=== PATIENT | female | born 1970 | race Caucasian/White ===

== ENCOUNTER → 2018-04-24 09:57 | Outpatient (CLI) | payer OTHER, SELFPAY ==
[2018-04-24 11:39] LABS: Add Manual Diff / Slide Review NO; Basophils Percent Auto 0.6 % (0-2); Eosinophils Percent Auto 0.8 % (2-4); Hematocrit 44.5 % (36-46); Hemoglobin 15.5 g/dL (12.0-16.0); Lymphocytes Percent Auto 34.6 % (25-40); Mean Corpuscular HGB Conc 34.8 % (30-36); Mean Corpuscular Hemoglobin 31.9 PG (26-34); Mean Corpuscular Volume 91.6 fL (80-100); Monocytes Percent Auto 6.3 % (3-14); Neutrophils Absolute Auto 3500 /uL (3000-5900); Neutrophils Percent Auto 57.7 % (50-75); Platelet Count 196 X10^3/uL (150-400); Red Blood Cell Count 4.85 X10^6/uL (4.0-5.2); Red Cell Distribution Width 13.4 % (11.6-14.8)
[2018-04-24 11:43] LABS: Prothrombin Time 10.6 SECONDS (10.1-12.7)
[2018-04-24 11:46] LABS: PTT Partial Thromboplastin Tim 33 SECONDS (26.4-36.2)
== END ==
PROVIDERS: PCP Internal Medicine; Visit Provider Orthopaedic Surgery Orthopaedic Surgery of the Spine
DX: Z01.818 Encounter for other preprocedural examination (principal)
CPT/HCPCS: 36415; 85025; 85610; 85730; 93005; 93010

== ENCOUNTER 2018-05-09 13:18 | Day surgery (SDC) | payer OTHER, SELFPAY ==
[2018-05-09] VITALS (10 sets, daily range): BP systolic 109–129; BP diastolic 72–82; PULSE 70–92; RESP 10–20; TEMP 35.9–36.3; O2SAT 94–100; BMI 19.8
--- NOTE | 2018-05-09 | DI.RAD.S_ITS ---
PROCEDURE: XR LUMBAR SPINE 2-3V INDICATIONS: L4-5 MICRO DISCECTOMY TECHNIQUE: 2 views of the lumbar spine were acquired. COMPARISON: None. FINDINGS: Bones: There is normal bony alignment. No vertebral body compression fractures. No suspicious bony lesions. Intraoperative localizer posterior and left of the L4-L5 disc space. Soft tissues: Overlying bowel gas pattern is normal. No suspicious soft tissue calcifications. IMPRESSION: Intraoperative localizer level is L4-L5 disc. Dictated by: Ginger Keller MD, PhD on 05/09/2018 at 18:40 Approved by: Ginger Keller MD, PhD on 05/09/2018 at 18:41
[2018-05-09] MEDS: LACTATED RINGERS 1,000 ML 42 ML IV ×2 (14:29→17:13)
--- NOTE | 2018-05-09 15:35 | PM.PREOP ---
Pre-operative Note Interval Note Pre-op Check: Yes History & Physical Reviewed by Physician, Yes Exam Performed and Yes History & Physical exam performed today by Physician Changes: No
[2018-05-09] MEDS: CEFAZOLIN 1 GM VIAL 2 GM IV (15:53)
--- NOTE | 2018-05-09 16:18 | SUR.OPER ---
Prone on spine table, head in foam head support, padded chest and pelvic supports, gel pad at knees, lower legs supported by pillows; nipples, genitalia and toes free of pressure, arms secured on foam padded arm boards at <90 degrees abduction. Tape over blanket at thigh secured to table.
[2018-05-09] MEDS: BUPIVACAINE 0.5% W/ EPI (PF) VIAL 30 ML INJ (16:25)
[2018-05-09] MEDS: methylPREDNISolone acet DEPO 40 MG/ML VIAL INJ (16:29)
--- NOTE | 2018-05-09 17:03 | PM.OP.1 ---
Operative Date/Time/Diagnoses Date of procedure: 05/09/18 Time of procedure: 16:03 Pre-op diagnosis: 1. L4-5 disc herniation 2. Lumbar radiculopathy Post-op diagnosis: same Procedure & Clinicians Procedure: 1. L4-5 left microdiscectomy 2. Utilization of microsurgical technique and operating microscope Same procedure as scheduled: Yes Indications: Patient has been having chronic back pain and worsening lumbar radiculopathy. Patient failed multiple conservative management with worsening pain weakness and numbness in her lower extremity. Patient has been having difficulty performing activity of daily living. After discussing risks benefits of treatment options, patient elected proceed with surgery. Surgeon: Yoni Ruth Sales Engineer Engineered Products: Jenni Pelayo Click Yes if Unassisted: No Anesthesia Type: General Operative Notes Closure Type: primary Specimen(s): none sent Estimated Blood Loss (mL): 20 Blood products transfused: none Procedure in detail: Patient was seen in the preoperative area. Risks and benefits of the surgery was discussed with the patient. Informed consent was obtained from the patient and placed in the chart. Surgical site was marked. Patient was taken to the operative room. General anesthesia was administered. Prophylactic antibiotic was given to the patient less than 30 min before the incision was made. Patient was placed into a prone position on the Matt table. Patient's back was then prepped and draped in the sterile fashion. Time-out was performed at this time. Using AP and lateral C-arm imaging the interval between L4-5 was identified and marked on patient's back. A 1 inch incision 1 in from midline was made on the left side. The fascia was incised in line with skin incision. Globus MARS retractors was placed inside the incision and docked onto the L4 lamina. Using microsurgical technique and operating microscope, a L4 laminotomy was performed using a Kerrison rongeur. Liagamentum flavum was resected at the site of the laminotomy. The disc space at L4-5 was identified. Microdiscectomy was performed by incising the annulus with #11 blade. Microcurettes and pituitary was used to removed herniated disc fragments of disc from the epidural space. After the microdiskectomy was completed, the area medial lateral superior and inferior to the area of the microdiskectomy was inspected and explored using a micro curette. No other impinging structure was identified. The wound was then irrigated with sterile normal saline. 40 mg Depo-Medrol was placed into the epidural space. The deep fascia was closed with 1-0 Vicryl. The subcutaneous tissue was closed with 2-0 Vicryl. The skin was closed with 4-0 Monocryl. Patient tolerated the procedure well. There were no complications. Patient was transferred recovery room in stable condition. Complications: none Condition: stable Disposition: same day surgery Plan for aftercare: Discharge to home
[2018-05-09] MEDS: hydrOXYzine pamoate 25 MG CAPSULE PO (17:54)
== END 2018-05-09 18:37 | disposition home or self-care (01) ==
PROVIDERS: Family Provider Family Medicine; PCP Internal Medicine; Visit Provider Orthopaedic Surgery Orthopaedic Surgery of the Spine
PROC: (CPT 63030; principal; 2018-05-09 15:15)
DX: M51.16 Intervertebral disc disorders with radiculopathy, lumbar region (principal); M54.5 Low back pain; G89.29 Other chronic pain; G35 Multiple sclerosis; F17.210 Nicotine dependence, cigarettes, uncomplicated
CPT/HCPCS: 63030; 72100; 76000; J0330; J0690; J1030; J1100; J1170; J1885; J2250; J2405; J2704; J3010

== ENCOUNTER 2020-01-11 20:38 | Emergency (ER) | payer OTHER, SELFPAY ==
[2020-01-11 21:05] VITALS: BP 149/93; PULSE 91; RESP 20; TEMP 37.2; O2SAT 98; BMI 19.5
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
== END 2020-01-12 01:00 | disposition home or self-care (01) ==
PROVIDERS: Emergency Provider Emergency Medicine; PCP Internal Medicine
DX: S06.0X0A Concussion without loss of consciousness, initial encounter (principal); S13.4XXA Sprain of ligaments of cervical spine, initial encounter; V43.52XA Car driver injured in collision with other type car in traffic accident, initial encounter; Y92.410 Unspecified street and highway as the place of occurrence of the external cause
CPT/HCPCS: 99281; 99283

== ENCOUNTER 2020-05-16 18:43 | Emergency (ER) | payer OTHER, SELFPAY ==
[2020-05-16 19:04] VITALS: BP 138/94; PULSE 96; RESP 16; TEMP 36.7; O2SAT 97; BMI 19.1
--- NOTE | 2020-05-16 19:26 | ED_ITS ---
HPI - General Adult General Chief complaint: Diabetic Problem Stated complaint: Blood Sugar 559, Not Feeling Well Time Seen by Provider: 05/16/20 18:54 Source: patient Mode of arrival: Ambulatory Limitations: no limitations History of Present Illness HPI narrative: 49-year-old female with history of diabetes not on insulin here for evaluation of hyperglycemia. Patient states that she has been on oral medications for some time. She has been in communication with her primary provider. She states that she recently had test performed which concluded that she was ?type 1 diabetic ?she has been in discussion with her primary provider about being on insulin. Apparently there has been a prescription for this into the pharmacy however due to some issues with insurance and the prescription patient has yet to start on any insulin. She states she has felt very fatigued recently. Has been urinating quite a bit. Overall has not felt very well. Took her blood sugar earlier today and it was greater than 500. She drank a protein shake after this reading. She has been taking her oral medications. Related Data Home Medications Medication Instructions Recorded Confirmed cholecalciferol (vitamin D3) 5,000 unit PO DAILY 05/06/18 05/09/18 cyanocobalamin (vitamin B-12) 1,000 mcg PO DAILY 05/06/18 05/09/18 ferrous sulfate 325 mg PO BID 05/06/18 05/09/18 ibuprofen 800 mg PO Q6H PRN 05/06/18 05/09/18 interferon beta-1a [Avonex] 0.5 ml IM WEEKLY 05/06/18 05/09/18 oxycodone-acetaminophen 1 tab PO Q4-6H PRN 05/06/18 05/09/18 venlafaxine 150 mg PO DAILY 05/06/18 05/09/18 methocarbamol 750 mg PO BEDTIME 05/08/18 05/09/18 Previous Rx's Medication Instructions Recorded hydroxyzine pamoate [Vistaril] 25 mg PO Q6-8H PRN #20 cap 05/09/18 oxycodone 5 mg PO Q4-6H PRN #30 cap 05/09/18 Allergies Allergy/AdvReac Type Severity Reaction Status Date / Time latex Allergy Severe Rash Verified 05/09/18 14:50 Review of Systems Constitutional Constitutional: Reports fatigue, Denies headache(s), Reports malaise and Reports weight loss Eyes Eyes: Reports blurry vision ENT Ears, Nose, Mouth, and Throat: Denies headache(s) Cardiovascular Cardiovascular: Denies chest pain and Denies dyspnea Respiratory Respiratory: Denies dyspnea Gastrointestinal Gastrointestinal: Denies abdominal pain, Denies nausea and Denies vomiting Genitourinary Genitourinary: Denies dysuria Genitourinary: Denies dysuria Musculoskeletal Musculoskeletal: Denies arthralgias and Denies myalgias Integumentary/Breasts Skin/Breast: Denies rash Neurologic Neurologic: Denies behavioral changes and Denies headache(s) Psychiatric Psychiatric: Denies behavioral changes Endocrine Endocrine: Reports fatigue Hematologic/Lymphatic Hematologic/Lymphatic: Denies easy bleeding and Denies easy bruising Allergic/Immunologic Allergic/Immunologic: Denies urticaria Patient History Medical History Diabetes, gestational (Acute) Easy bruising (Acute) Hot flashes (Acute) Incomplete RBBB (Acute) Low back pain with left-sided sciatica (Acute) Lumbar disc herniation with radiculopathy (Acute) Multiple sclerosis (Acute) Perimenopausal (Acute) Primary osteoarthritis of left knee (Acute) Primary osteoarthritis of right knee (Acute) Restless leg (Acute) Septal myocardial infarction (Acute) Social History household members: family Smoking Status: Current every day smoker Smoking Status: Current every day smoker alcohol intake frequency: 0-2 drinks per day Substance Use Type: marijuana Exam Initial Vital Signs Initial Vital Signs: Vital Signs Temperature 98.1 F 05/16/20 19:04 Pulse Rate 96 H 05/16/20 19:04 Respiratory Rate 16 05/16/20 19:04 Blood Pressure 138/94 H 05/16/20 19:04 Pulse Oximetry 97 05/16/20 19:04 Const General: cooperative and comfortable Limitations: mental status not altered HENMT Head: normal to inspection and normocephalic Resp Effort & Inspection: normal respiratory effort Cardio Rate: regular rate GI Inspection: non-distended Palpation: soft Skin Lesions: no lesions Rashes: no rashes Neuro General: patient alert, patient awake and patient oriented x3 Cognition: normal cognition Speech: speech normal Gait: normal gait Extrem General: normal to inspection Psych Appearance: grossly normal and well kempt Scores GCS [place] coma scale eye opening: Spontaneous [place] coma scale verbal response: Orientated [place] coma scale motor response: Obey commands [place] coma scale total score: 15 Course Orders Ordered: ED Orders 05/16/20 18:56 EKG-12 Lead Stat 05/16/20 19:21 Complete Blood Count AUTO DIFF Stat Comprehensive Metabolic Panel Stat Ethanol (ETOH) Stat Ketones (Beta-Hydroxybutyrate) Stat Lactate (Lactic Acid) Stat Lipase Stat Magnesium Stat Phosphorous Stat Troponin & CK Cardiac Panel Stat 05/16/20 19:40 Venous Blood Gas Stat 05/16/20 19:46 UA Complete [Urinalysis and Microscopic] Stat Discontinued Medications Sodium Chloride (Normal Saline 0.9%) 1,000 mls @ 1,000 mls/hr IV BOLUS ONE Stop: 05/16/20 19:54 Last Infusion: 05/16/20 20:41 Dose: 0 mls/hr Documented by: Admin: 05/16/20 19:28 Dose: 1,000 mls/hr Documented by: VINCENT Vital Signs Vital signs: Vital Signs - 8 hr 05/16/20 19:04 05/16/20 19:44 05/16/20 20:00 Temperature 98.1 F Pulse Rate 96 H 73 76 Respiratory Rate 16 21 20 Blood Pressure 138/94 H Pulse Oximetry 97 96 95 05/16/20 20:30 05/16/20 20:59 Temperature Pulse Rate 74 79 Respiratory Rate 18 14 Blood Pressure 126/81 Pulse Oximetry 95 98 Medical Decision Making Lab Data Lab results reviewed: Yes I reviewed the patient's lab results. Result diagrams: 05/16/20 19:21 05/16/20 19:21 Labs: Lab Results 05/16/20 05/16/20 05/16/20 Range/Units 19:21 19:21 19:21 WBC 4.9 (4.5-11.0) X10^3/uL RBC 4.55 (4.0-5.2) X10^6/uL Hgb 14.1 (12.0-16.0) g/dL Hct 41.4 (36-46) % MCV 90.9 (80-100) fL MCH 31.1 (26-34) PG MCHC 34.2 (30-36) % RDW 13.4 (11.6-14.8) % Plt Count 147 L (150-400) X10^3/uL Neut % (Auto) 51.6 (50-75) % Lymph % (Auto) 40.2 H (25-40) % [place] % (Auto) 5.8 (3-14) % Eos % (Auto) 1.4 L (2-4) % Baso % (Auto) 1.0 (0-2) % Neut # (Auto) 2500 (0232-7260) /uL Lymph # (Auto) 2000 (2930-4381) /uL [place] # (Auto) 300 (0-900) /uL Eos # (Auto) 100 (0-450) /uL Baso # (Auto) 0 (0-100) /uL VBG pH (7.33-7.43) VBG pCO2 (45-50) mmHg VBG pO2 (35-45) mmHg VBG HCO3 (23-28) mmol/L VBG Total CO2 (24-29) mmol/L VBG O2 Saturation (70-75) % VBG Base Excess (0-4) mmol/L Sodium 132 L (137-145) mmol/L Potassium 4.4 (3.4-5.1) mmol/L Chloride 95 L (98-107) mmol/L Carbon Dioxide 30 (22-32) mmol/L BUN 21 H (7-17) mg/dL Creatinine 0.42 L (0.52-1.04) mg/dL Estimated GFR > 60.0 (>60) mL/min BUN/Creatinine Ratio 50.0 H (6-22) Glucose 402 H (70-100) mg/dL Lactate (0.7-2.1) mmol/L Calcium 9.4 (8.4-10.2) mg/dL Phosphorus 3.7 (2.5-4.5) mg/dL Magnesium 1.8 (1.6-2.3) mg/dL Total Bilirubin 0.4 (0.2-1.3) mg/dL AST 22 (14-36) IU/L ALT 20 (<35) IU/L Alkaline Phosphatase 115 (38-126) U/L Total Creatine Kinase 53 (30-135) U/L CK-MB (CK-2) TNP CK-MB (CK-2) Rel Index TNP Troponin I < 0.012 (0.01-0.034) ng/mL Total Protein 6.8 (6.3-8.2) g/dL Albumin 4.1 (3.5-5.0) g/dL Globulin 2.7 (1.7-4.1) g/dL Albumin/Globulin Ratio 1.5 (1.0-2.8) Lipase 81 (23-300) U/L Urine Color Urine Appearance Urine pH (4.5-8.0) Ur Specific [place] (1.000-1.035) Urine Protein (Negative) Urine Glucose (UA) (Negative) g/dL Urine Ketones (NEGATIVE) Urine Occult Blood (Negative) Urine Nitrate (Negative) Urine Bilirubin (NEGATIVE) Urine Urobilinogen (0.2) E.U./dL Ur Leukocyte Esterase (NEGATIVE) Urine RBC (0-5/HPF) Urine WBC (0-5/HPF) Ur Squamous Epith Cells (0-5/HPF) Amorphous Sediment Urine Bacteria (None) Ur Culture Indicated? Ethyl Alcohol < 10 ( - 10) mg/dL Ketones 0.11 (<0.27) mmol/L 05/16/20 05/16/20 05/16/20 Range/Units 19:21 19:40 19:46 WBC (4.5-11.0) X10^3/uL RBC (4.0-5.2) X10^6/uL Hgb (12.0-16.0) g/dL Hct (36-46) % MCV (80-100) fL MCH (26-34) PG MCHC (30-36) % RDW (11.6-14.8) % Plt Count (150-400) X10^3/uL Neut % (Auto) (50-75) % Lymph % (Auto) (25-40) % [place] % (Auto) (3-14) % Eos % (Auto) (2-4) % Baso % (Auto) (0-2) % Neut # (Auto) (1134-4668) /uL Lymph # (Auto) (7724-7387) /uL [place] # (Auto) (0-900) /uL Eos # (Auto) (0-450) /uL Baso # (Auto) (0-100) /uL VBG pH 7.45 H (7.33-7.43) VBG pCO2 44.5 L (45-50) mmHg VBG pO2 75 H (35-45) mmHg VBG HCO3 31 H (23-28) mmol/L VBG Total CO2 32 H (24-29) mmol/L VBG O2 Saturation 95 H (70-75) % VBG Base Excess 7.0 H (0-4) mmol/L Sodium (137-145) mmol/L Potassium (3.4-5.1) mmol/L Chloride (98-107) mmol/L Carbon Dioxide (22-32) mmol/L BUN (7-17) mg/dL Creatinine (0.52-1.04) mg/dL Estimated GFR (>60) mL/min BUN/Creatinine Ratio (6-22) Glucose (70-100) mg/dL Lactate 0.7 (0.7-2.1) mmol/L Calcium (8.4-10.2) mg/dL Phosphorus (2.5-4.5) mg/dL Magnesium (1.6-2.3) mg/dL Total Bilirubin (0.2-1.3) mg/dL AST (14-36) IU/L ALT (<35) IU/L Alkaline Phosphatase (38-126) U/L Total Creatine Kinase (30-135) U/L CK-MB (CK-2) CK-MB (CK-2) Rel Index Troponin I (0.01-0.034) ng/mL Total Protein (6.3-8.2) g/dL Albumin (3.5-5.0) g/dL Globulin (1.7-4.1) g/dL Albumin/Globulin Ratio (1.0-2.8) Lipase (23-300) U/L Urine Color Yellow Urine Appearance Sl cloudy Urine pH 7.0 (4.5-8.0) Ur Specific [place] 1.015 (1.000-1.035) Urine Protein Negative (Negative) Urine Glucose (UA) 2+ H (Negative) g/dL Urine Ketones Negative (NEGATIVE) Urine Occult Blood 3+ H (Negative) Urine Nitrate Negative (Negative) Urine Bilirubin Negative (NEGATIVE) Urine Urobilinogen 0.2 (0.2) E.U./dL Ur Leukocyte Esterase Negative (NEGATIVE) Urine RBC 10-30/hpf H (0-5/HPF) Urine WBC 0-1/hpf (0-5/HPF) Ur Squamous Epith Cells 0-1 /hpf (0-5/HPF) Amorphous Sediment 3+ Urine Bacteria None seen (None) Ur Culture Indicated? Cult not indicated Ethyl Alcohol ( - 10) mg/dL Ketones (<0.27) mmol/L Point of Care Testing Test Results Negative Glucose POC 314 Point of care testing: Point of Care Testing Test Results Negative Glucose POC 314 ECG Data Attestation: I personally reviewed and interpreted this ECG as follows: Prior ECG tracings: not available for review Interpretation: Sinus rhythm Normal axis Normal QRS Normal QTC No ST T wave changes MDM Narrative Medical decision making narrative: Blood sugar improved with fluids. No signs of DKA. Had a discussion with the patient regarding her blood sugar. Patient was hoping that I would start her on insulin out of the emergency department however I told her that this is something that needs to be followed up with her primary doctor in someone who can follow her up closely and make adjustments as needed. I feel we could hold on further workup for now. Patient was given return precautions and follow-up instructions. She expressed understanding and agreement. Discharge Plan Departure Patient Disposition: Home Clinical Impression: Hyperglycemia Discharge Date/Time: 05/16/20 20:59 Instructions: DI for Diabetes Type 1 -- Adult Activity Restrictions/Additional Instructions: I recommend that you continue all of your medications as directed. Contact your primary provider tomorrow for a follow-up to discuss the status of your insulin prescription. Return to the emergency department for any new or worsening symptoms like we discussed. Prescriptions: No Action venlafaxine 150 mg Capsule,Extended Release 24hr 150 mg PO DAILY RF: 0 cyanocobalamin (vitamin B-12) 1,000 mcg Tablet 1,000 mcg PO DAILY RF: 0 ferrous sulfate 325 mg (65 mg iron) Tablet 325 mg PO BID RF: 0 ibuprofen 200 mg Tablet 800 mg PO Q6H PRN (Reason: Pain) RF: 0 interferon beta-1a [Avonex] 30 mcg/0.5 mL Syringe Kit 0.5 ml IM WEEKLY RF: 0 cholecalciferol (vitamin D3) 5,000 unit Tablet 5,000 unit PO DAILY RF: 0 oxycodone-acetaminophen 5-325 mg Tablet 1 tab PO Q4-6H PRN (Reason: Pain, Moderate) RF: 0 methocarbamol 750 mg Tablet 750 mg PO BEDTIME RF: 0 oxycodone 5 mg capsule 5 mg PO Q4-6H PRN (Reason: pain) Qty: 30 RF: 0 hydroxyzine pamoate [Vistaril] 25 mg capsule 25 mg PO Q6-8H PRN (Reason: spasms) Qty: 20 RF: 0 Referrals: Yoel Leon MD [Primary Care Provider] -
[2020-05-16] MEDS: SODIUM CHLORIDE 0.9% 1,000 ML 1000 ML IV (19:28)
[2020-05-16 19:32] LABS: Add Manual Diff / Slide Review NO; Basophils Absolute Auto 0 /uL (0-100); Eosinophils Absolute Auto 100 /uL (0-450); Eosinophils Percent Auto 1.4 % (2-4); Hematocrit 41.4 % (36-46); Hemoglobin 14.1 g/dL (12.0-16.0); Lymphocytes Absolute Auto 2000 /uL (1100-4500); Lymphocytes Percent Auto 40.2 % (25-40); Mean Corpuscular HGB Conc 34.2 % (30-36); Mean Corpuscular Hemoglobin 31.1 PG (26-34); Mean Corpuscular Volume 90.9 fL (80-100); Monocytes Absolute Auto 300 /uL (0-900); Monocytes Percent Auto 5.8 % (3-14); Neutrophils Absolute Auto 2500 /uL (1500-7000); Neutrophils Percent Auto 51.6 % (50-75); Platelet Count 147 X10^3/uL (150-400); Red Blood Cell Count 4.55 X10^6/uL (4.0-5.2); Red Cell Distribution Width 13.4 % (11.6-14.8); White Blood Cell Count 4.9 X10^3/uL (4.5-11.0)
[2020-05-16 19:44] VITALS: PULSE 73; RESP 21; O2SAT 96
[2020-05-16 19:48] LABS: Creatine Kinase 53 U/L (30-135); Lactate (Lactic Acid) 0.7 mmol/L (0.7-2.1); Lipase 81 U/L (23-300); Magnesium 1.8 mg/dL (1.6-2.3); Phosphorous 3.7 mg/dL (2.5-4.5)
[2020-05-16 19:50] LABS: Alanine Aminotransferase 20 IU/L (<35); Albumin 4.1 g/dL (3.5-5.0); Albumin Globulin Ratio 1.5 (1.0-2.8); Alkaline Phosphatase 115 U/L (38-126); Aspartate Aminotransferase 22 IU/L (14-36); Bilirubin Total 0.4 mg/dL (0.2-1.3); Blood Urea Nitrogen 21 mg/dL (7-17); Calcium 9.4 mg/dL (8.4-10.2); Carbon Dioxide 30 mmol/L (22-32); Chloride 95 mmol/L (98-107); Estimated Glomerular Filt Rate > 60.0 mL/min (>60); Globulin 2.7 g/dL (1.7-4.1); Glucose 402 mg/dL (70-100); HEMOLYSIS 17 (0-50); Potassium 4.4 mmol/L (3.4-5.1); Sodium 132 mmol/L (137-145); Total Protein 6.8 g/dL (6.3-8.2)
[2020-05-16 19:52] LABS: Ketones (Beta-Hydroxybutyrate) 0.11 mmol/L (<0.27)
[2020-05-16 19:54] LABS: Bacteria Urine None Seen
[2020-05-16 19:56] LABS: PCO2 VBG 44.5 mmHg (45-50); pH VBG 7.45 (7.33-7.43)
[2020-05-16 19:57] LABS: HCO3 VBG 31 mmol/L (23-28); PO2 VBG 75 mmHg (35-45); Total CO2 VBG 32 mmol/L (24-29)
[2020-05-16 19:58] LABS: Appearance Urine UA SL CLOUDY; Bilirubin Urine UA NEGATIVE (NEGATIVE); Color Urine UA YELLOW; Glucose Urine UA 2+ g/dL (Negative); Ketones Urine UA NEGATIVE (NEGATIVE); Leukocyte Esterase Urine UA NEGATIVE (NEGATIVE); Nitrite Urine UA NEGATIVE (Negative); Occult Blood Urine UA 3+ (Negative); Protein Urine UA NEGATIVE (Negative); Specific Gravity Urine UA 1.015 (1.000-1.035); Urobilinogen Urine UA 0.2 E.U./dL (0.2)
[2020-05-16 19:58] LABS: Oxygen Saturation VBG 95 % (70-75)
[2020-05-16 20:00] VITALS: PULSE 76; RESP 20; O2SAT 95
[2020-05-16 20:01] LABS: Troponin I < 0.012 ng/mL (0.01-0.034)
[2020-05-16 20:04] LABS: Ethanol (ETOH) < 10 mg/dL
[2020-05-16 20:25] LABS: Amorphous Sediment Urine 3+; Culture Indicated Urine Cult Not Indicated; RBC Urine 10-30/HPF (0-5/HPF); Squamous Epithelial Cell Urine 0-1 /HPF (0-5/HPF); WBC Urine 0-1/HPF (0-5/HPF)
[2020-05-16 20:30] VITALS: PULSE 74; RESP 18; O2SAT 95
[2020-05-16 20:59] VITALS: BP 126/81; PULSE 79; RESP 14; O2SAT 98
== END 2020-05-16 20:59 | disposition home or self-care (01) ==
PROVIDERS: Emergency Provider Emergency Medicine; PCP Internal Medicine
DX: E11.65 Type 2 diabetes mellitus with hyperglycemia (principal)
CPT/HCPCS: 36415; 80053; 80320; 81001; 81025; 82009; 82550; 82805; 82962; 83605; 83690; 83735; 84100; 84484; 85025; 93005; 96360; 99284

== ENCOUNTER 2020-08-03 17:22 | Emergency (ER) | payer OTHER, SELFPAY ==
[2020-08-03] VITALS (9 sets, daily range): BP systolic 118–142; BP diastolic 81–96; PULSE 81–125; RESP 15–31; TEMP 36.8; O2SAT 94–98; BMI 18.8
--- NOTE | 2020-08-03 18:31 | ED.EXTPRO ---
HPI - Extremity Problem General Chief complaint: Extremity Problem,Nontraumatic Stated complaint: R had swollen and numb after taking a medication Time Seen by Provider: 08/03/20 18:03 Source: patient Mode of arrival: Ambulatory Limitations: no limitations History of Present Illness HPI Narrative: Patient is a 49-year-old female here for evaluation of pain and redness and tingling to her right upper extremity. Patient states that just over 10 days ago she was started on antibiotics for a ?cyst? on her left cheek. After being on this medication for more than 1 week she started to develop a rash. She went to a walk-in clinic who thought that she was potentially have an allergic reaction. She was given a dose of Decadron and was instructed to stop taking the antibiotics. She has stopped taking them as directed however she now has pain and tingling to her right upper extremity. She is concerned that potentially is having reaction to the steroids. Denies any chest pain or shortness of breath. No problems swallowing. She does have a history of an insulin-dependent diabetes and also myasthenia gravis. Related Data Home Medications Medication Instructions Recorded Confirmed cholecalciferol (vitamin D3) 5,000 unit PO DAILY 05/06/18 05/09/18 cyanocobalamin (vitamin B-12) 1,000 mcg PO DAILY 05/06/18 05/09/18 ferrous sulfate 325 mg PO BID 05/06/18 05/09/18 ibuprofen 800 mg PO Q6H PRN 05/06/18 05/09/18 interferon beta-1a [Avonex] 0.5 ml IM WEEKLY 05/06/18 05/09/18 oxycodone-acetaminophen 1 tab PO Q4-6H PRN 05/06/18 05/09/18 venlafaxine 150 mg PO DAILY 05/06/18 05/09/18 methocarbamol 750 mg PO BEDTIME 05/08/18 05/09/18 Previous Rx's Medication Instructions Recorded hydroxyzine pamoate [Vistaril] 25 mg PO Q6-8H PRN #20 cap 05/09/18 oxycodone 5 mg PO Q4-6H PRN #30 cap 05/09/18 oxycodone-acetaminophen [Percocet] 1 tab PO Q4-6H PRN #7 tab 08/03/20 prednisone 20 mg PO DAILY 6 Days #6 tab 08/03/20 Allergies Allergy/AdvReac Type Severity Reaction Status Date / Time latex Allergy Severe Rash Verified 08/03/20 17:30 amoxicillin Allergy Verified 08/03/20 17:30 Review of Systems Constitutional Constitutional: Denies fever(s) ENT Ears, Nose, Mouth, and Throat: Denies sore throat Cardiovascular Cardiovascular: Denies chest pain and Denies dyspnea Respiratory Respiratory: Denies dyspnea Musculoskeletal Musculoskeletal: Reports arthralgias (Right wrist now a right shoulder) and Reports myalgias Integumentary/Breasts Skin/Breast: Reports rash Neurologic Neurologic: Denies behavioral changes Psychiatric Psychiatric: Denies behavioral changes Hematologic/Lymphatic Hematologic/Lymphatic: Denies easy bleeding and Denies easy bruising Allergic/Immunologic Allergic/Immunologic: Denies urticaria Patient History Medical History Diabetes, gestational Easy bruising Hot flashes Incomplete RBBB Low back pain with left-sided sciatica Lumbar disc herniation with radiculopathy Multiple sclerosis Perimenopausal Primary osteoarthritis of left knee Primary osteoarthritis of right knee Restless leg Septal myocardial infarction Social History household members: family Smoking Status: Current every day smoker Smoking Status: Current every day smoker alcohol intake frequency: holidays/special occasions only Substance Use Type: marijuana Exam Initial Vital Signs Initial Vital Signs: Vital Signs Temperature 98.2 F 08/03/20 17:23 Pulse Rate 117 H 08/03/20 17:23 Respiratory Rate 15 08/03/20 17:23 Blood Pressure 136/82 08/03/20 17:23 Pulse Oximetry 96 08/03/20 17:23 Const General: cooperative and comfortable Limitations: mental status not altered [facility] Head: normal to inspection and normocephalic Resp Effort & Inspection: normal respiratory effort Auscultation: clear to auscultation bilaterally Cardio Rate: tachycardic Rhythm: regular rhythm Pulses: radial pulses present on the right Skin Other: Patient with redness located dorsally on the right wrist. No blistering. No pustules. Neuro General: patient alert and patient awake Cognition: normal cognition Speech: speech normal Extrem Other: Tenderness to palpation and with flexion extension of the right wrist. Her right elbow was unremarkable. Her right shoulder is unremarkable however she does have tenderness over the sternoclavicular joint on the right. Psych Appearance: grossly normal and well kempt Course Orders Ordered: ED Orders 08/03/20 18:00 C-Reactive Protein Quant Stat Complete Blood Count AUTO DIFF Stat Comprehensive Metabolic Panel Stat Erythrocyte Sedimentation Rate Stat Lactate (Lactic Acid) Stat Lipase Stat Procalcitonin Stat 08/03/20 18:50 Blood Culture Stat Discontinued Medications Oxycodone/Acetaminophen (Oxycodone/Acetaminophen 5/325 Tablet) 1 tab PO NOW ONE Stop: 08/03/20 20:26 Last Admin: 08/03/20 20:37 Dose: 1 tab Documented by: JEZ Oxycodone/Acetaminophen (Oxycodone/Apap 5/325 Prepack) 1 bottle MISC SEEINSTR ONE Stop: 08/03/20 20:26 Last Admin: 08/03/20 20:37 Dose: 1 bottle Documented by: JEZ Prednisone (Prednisone 20 Mg Tablet) 20 mg PO NOW ONE Stop: 08/03/20 20:26 Last Admin: 08/03/20 20:37 Dose: 20 mg Documented by: JEZ Vital Signs Vital signs: Vital Signs - 8 hr 08/03/20 17:23 08/03/20 17:28 08/03/20 17:29 Temperature 98.2 F Pulse Rate 117 H 125 H Respiratory Rate 15 Blood Pressure 136/82 136/82 Pulse Oximetry 96 96 08/03/20 17:30 08/03/20 18:00 08/03/20 18:30 Temperature Pulse Rate 125 H 109 H 97 H Respiratory Rate 27 H 23 Blood Pressure 142/96 H 118/81 Pulse Oximetry 96 97 94 08/03/20 19:00 08/03/20 19:30 08/03/20 20:00 Temperature Pulse Rate 81 83 97 H Respiratory Rate 28 H 26 H 31 H Blood Pressure Pulse Oximetry 94 95 98 MDM - Extremity (Nontraumatic) Lab Data Attestation: I reviewed the patient's lab results. Result diagrams: 08/03/20 18:00 08/03/20 18:00 Labs: Lab Results 08/03/20 08/03/20 08/03/20 Range/Units 18:00 18:00 18:00 WBC 7.7 (4.5-11.0) X10^3/uL RBC 4.86 (4.0-5.2) X10^6/uL Hgb 14.8 (12.0-16.0) g/dL Hct 43.5 (36-46) % MCV 89.5 (80-100) fL MCH 30.4 (26-34) PG MCHC 34.0 (30-36) % RDW 13.9 (11.6-14.8) % Plt Count 134 L (150-400) X10^3/uL Neut % (Auto) 72.5 (50-75) % Lymph % (Auto) 20.7 L (25-40) % [place] % (Auto) 6.1 (3-14) % Eos % (Auto) 0.3 L (2-4) % Baso % (Auto) 0.4 (0-2) % Neut # (Auto) 5600 (6268-3292) /uL Lymph # (Auto) 1600 (9797-8499) /uL [place] # (Auto) 500 (0-900) /uL Eos # (Auto) 0 (0-450) /uL Baso # (Auto) 0 (0-100) /uL ESR 43 H (0-20) MM/HR Sodium 133 L (137-145) mmol/L Potassium 4.3 (3.4-5.1) mmol/L Chloride 102 (98-107) mmol/L Carbon Dioxide 24 (22-32) mmol/L BUN 13 (7-17) mg/dL Creatinine 0.32 L (0.52-1.04) mg/dL Estimated GFR > 60.0 (>60) mL/min BUN/Creatinine Ratio 40.6 H (6-22) Glucose 236 H (70-100) mg/dL Lactate (0.7-2.1) mmol/L Calcium 9.3 (8.4-10.2) mg/dL Total Bilirubin 0.8 (0.2-1.3) mg/dL AST 18 (14-36) IU/L ALT 18 (<35) IU/L Alkaline Phosphatase 100 (38-126) U/L C-Reactive Protein 21.5 H (<1.0) mg/dL Total Protein 7.2 (6.3-8.2) g/dL Albumin 4.1 (3.5-5.0) g/dL Globulin 3.1 (1.7-4.1) g/dL Albumin/Globulin Ratio 1.3 (1.0-2.8) Lipase 23 (23-300) U/L Procalcitonin 0.11 (<0.5) ng/mL /16/20 Range/Units 18:00 WBC (4.5-11.0) X10^3/uL RBC (4.0-5.2) X10^6/uL Hgb (12.0-16.0) g/dL Hct (36-46) % MCV (80-100) fL MCH (26-34) PG MCHC (30-36) % RDW (11.6-14.8) % Plt Count (150-400) X10^3/uL Neut % (Auto) (50-75) % Lymph % (Auto) (25-40) % [place] % (Auto) (3-14) % Eos % (Auto) (2-4) % Baso % (Auto) (0-2) % Neut # (Auto) (2926-3902) /uL Lymph # (Auto) (7833-2186) /uL [place] # (Auto) (0-900) /uL Eos # (Auto) (0-450) /uL Baso # (Auto) (0-100) /uL ESR (0-20) MM/HR Sodium (137-145) mmol/L Potassium (3.4-5.1) mmol/L Chloride (98-107) mmol/L Carbon Dioxide (22-32) mmol/L BUN (7-17) mg/dL Creatinine (0.52-1.04) mg/dL Estimated GFR (>60) mL/min BUN/Creatinine Ratio (6-22) Glucose (70-100) mg/dL Lactate 0.7 (0.7-2.1) mmol/L Calcium (8.4-10.2) mg/dL Total Bilirubin (0.2-1.3) mg/dL AST (14-36) IU/L ALT (<35) IU/L Alkaline Phosphatase (38-126) U/L C-Reactive Protein (<1.0) mg/dL Total Protein (6.3-8.2) g/dL Albumin (3.5-5.0) g/dL Globulin (1.7-4.1) g/dL Albumin/Globulin Ratio (1.0-2.8) Lipase (23-300) U/L Procalcitonin (<0.5) ng/mL MDM Narrative Medical decision making narrative: The redness and pain seems to be isolated around her right wrist and also around the sternoclavicular joint on the right. She is afebrile. After talking with her I do have some concern that the rashes she developed a couple days ago was unrelated to the antibiotics she was on. She was on the antibiotics for 7-10 days prior to development of the rash and that does not seem to be quite consistent with an allergic reaction. I also feel that her issues today are not related to the 1 dose of Decadron that she received. She does not have a leukocytosis but does have an elevated ESR and CRP. I considered that this potentially was an infection however I have more concern given the fact that it is in her wrist and also in the sternoclavicular joint this would be a inflammation rather than infection. I have low suspicion for a myasthenia crisis. I did have long discussion with the patient and her regarding the symptoms. Plan will be is to start her on a short course of steroids. She was given a 1st dose of prednisone here in the ER. She was instructed that this will probably make her blood sugar elevate and she needs to keep close eye on this and adjust her insulin as directed. Informed her that if her symptoms worsen or she starts to develop fevers or worsening pain or joints and other areas that she needs to return to the ER. I have low suspicion for endocarditis. She was given return precautions. She expressed understanding and agreement. Discharge Plan Departure Patient Disposition: Home Clinical Impression: Arthritis Instructions: DI for Arthritis Activity Restrictions/Additional Instructions: Recommend that you start taking the prednisone as directed. Your 1st dose was given today so your next dose will be tomorrow. Take it for 3 days and re-evaluate in if needed taken for 5 and then re-evaluate again like we discussed. This will cause your blood sugars to be elevated. You do need to adjust your insulin doses based on this. If your symptoms worsen or you develop fevers or any other new symptoms please return to the emergency department. Contact her primary provider for follow-up. Prescriptions: New prednisone 20 mg tablet 20 mg PO DAILY 6 Days Qty: 6 RF: 0 oxycodone-acetaminophen [Percocet] 5-325 mg tablet 1 tab PO Q4-6H PRN (Reason: pain) Qty: 7 RF: 0 No Action venlafaxine 150 mg Capsule,Extended Release 24hr 150 mg PO DAILY RF: 0 cyanocobalamin (vitamin B-12) 1,000 mcg Tablet 1,000 mcg PO DAILY RF: 0 ferrous sulfate 325 mg (65 mg iron) Tablet 325 mg PO BID RF: 0 ibuprofen 200 mg Tablet 800 mg PO Q6H PRN (Reason: Pain) RF: 0 interferon beta-1a [Avonex] 30 mcg/0.5 mL Syringe Kit 0.5 ml IM WEEKLY RF: 0 cholecalciferol (vitamin D3) 5,000 unit Tablet 5,000 unit PO DAILY RF: 0 oxycodone-acetaminophen 5-325 mg Tablet 1 tab PO Q4-6H PRN (Reason: Pain, Moderate) RF: 0 methocarbamol 750 mg Tablet 750 mg PO BEDTIME RF: 0 oxycodone 5 mg capsule 5 mg PO Q4-6H PRN (Reason: pain) Qty: 30 RF: 0 hydroxyzine pamoate [Vistaril] 25 mg capsule 25 mg PO Q6-8H PRN (Reason: spasms) Qty: 20 RF: 0 Referrals: Yoel Leon MD [Primary Care Provider] -
[2020-08-03 18:39] LABS: Add Manual Diff / Slide Review NO; Basophils Absolute Auto 0 /uL (0-100); Basophils Percent Auto 0.4 % (0-2); Eosinophils Absolute Auto 0 /uL (0-450); Eosinophils Percent Auto 0.3 % (2-4); Hematocrit 43.5 % (36-46); Hemoglobin 14.8 g/dL (12.0-16.0); Lymphocytes Absolute Auto 1600 /uL (1100-4500); Lymphocytes Percent Auto 20.7 % (25-40); Mean Corpuscular Hemoglobin 30.4 PG (26-34); Mean Corpuscular Volume 89.5 fL (80-100); Monocytes Absolute Auto 500 /uL (0-900); Monocytes Percent Auto 6.1 % (3-14); Neutrophils Absolute Auto 5600 /uL (1500-7000); Neutrophils Percent Auto 72.5 % (50-75); Platelet Count 134 X10^3/uL (150-400); Red Blood Cell Count 4.86 X10^6/uL (4.0-5.2); Red Cell Distribution Width 13.9 % (11.6-14.8); White Blood Cell Count 7.7 X10^3/uL (4.5-11.0)
[2020-08-03 18:52] LABS: Lactate (Lactic Acid) 0.7 mmol/L (0.7-2.1)
[2020-08-03 18:54] LABS: Alanine Aminotransferase 18 IU/L (<35); Albumin 4.1 g/dL (3.5-5.0); Albumin Globulin Ratio 1.3 (1.0-2.8); Alkaline Phosphatase 100 U/L (38-126); Aspartate Aminotransferase 18 IU/L (14-36); BUN Creatinine Ratio 40.6 (6-22); Bilirubin Total 0.8 mg/dL (0.2-1.3); Blood Urea Nitrogen 13 mg/dL (7-17); Calcium 9.3 mg/dL (8.4-10.2); Carbon Dioxide 24 mmol/L (22-32); Chloride 102 mmol/L (98-107); Estimated Glomerular Filt Rate > 60.0 mL/min (>60); Globulin 3.1 g/dL (1.7-4.1); Glucose 236 mg/dL (70-100); HEMOLYSIS < 15 (0-50); Lipase 23 U/L (23-300); Potassium 4.3 mmol/L (3.4-5.1); Sodium 133 mmol/L (137-145); Total Protein 7.2 g/dL (6.3-8.2)
[2020-08-03 19:05] LABS: C-Reactive Protein Quant 21.5 mg/dL (<1.0)
[2020-08-03 19:07] LABS: Procalcitonin 0.11 ng/mL (<0.5)
[2020-08-03 19:08] LABS: Erythrocyte Sedimentation Rate 43 MM/HR (0-20)
[2020-08-03] MEDS: OXYCODONE/ACETAMINOPHEN 5/325 TABLET 1 TAB PO (20:37)
[2020-08-03] MEDS: OXYCODONE/APAP 5/325 PREPACK 1 BOTTLE MISC (20:37)
[2020-08-03] MEDS: predniSONE 20 MG TABLET PO (20:37)
== END 2020-08-03 20:49 | disposition home or self-care (01) ==
PROVIDERS: Emergency Provider Emergency Medicine; PCP Internal Medicine
DX: T78.40XA Allergy, unspecified, initial encounter (principal); R21 Rash and other nonspecific skin eruption; R00.0 Tachycardia, unspecified; M19.90 Unspecified osteoarthritis, unspecified site
CPT/HCPCS: 36415; 80053; 83605; 83690; 84145; 85025; 85651; 86140; 87040; 99281; 99283

== ENCOUNTER → 2020-09-19 10:29 | Outpatient (CLI) | payer OTHER, SELFPAY ==
--- NOTE | 2020-09-19 | DI.CT.S_ITS ---
PROCEDURE: CT ABDOMEN PELVIS WO/W CON INDICATIONS: Personal history of other diseases of urinary system TECHNIQUE: Optional 5 mm thick noncontrast images acquired from the diaphragm to the symphysis pubis. After the administration of intravenous contrast, 5 mm thick images acquired from the diaphragm to the symphysis pubis after a 10-minute delay. 2 mm thick coronal and sagittal reformats were then performed of the kidneys and ureters. For radiation dose reduction, the following was used: automated exposure control, adjustment of mA and/or kV according to patient size. COMPARISON: None. FINDINGS: Image quality: Excellent. Lung bases: Lung bases are clear. Heart size is normal. Urinary system: Both kidneys are normal in size. The right kidney contains a nonobstructive 7 mm calculus seen on series 2, image 23, and at the left lower kidney there is a nonobstructive 2 mm calculus open (image 28). Note is made that the left renal collecting system and ureter is more prominent in size than that on the right, and this is associated with an partially obstructive distal left ureteral stone proximal to the bladder margin, measuring up to 6 mm in diameter. This has an internal radiodensity of up to 1600 Hounsfield units. It is associated with [id number] left-sided hydronephrosis and hydroureter but without asymmetric reduced renal contrast enhancement.. No perinephric fat stranding. Right-sided calyces appear normal in morphology when filled with contrast. Bladder wall thickness is normal. No calcified bladder stones. Other solid organs: Liver is normal in size and enhancement. Gallbladder appears normal. Biliary system is non dilated. Pancreas enhances normally. Spleen is normal in size and enhancement. No adrenal nodules. Peritoneum and bowel: Bowel loops demonstrate normal wall thickness and caliber. No free fluid or air. Moderate colonic obstipation. Nodes and vessels: No retroperitoneal or mesenteric adenopathy by size criteria. Aorta and inferior vena cava are normal in size. Abdominal wall: No ventral hernias. Pelvis: No pathologic free pelvic fluid. No inguinal hernias or adenopathy. Moderate colonic obstipation. Bones: No suspicious bony lesions. No vertebral body compression fractures. IMPRESSION: Within the collecting system of the kidneys bilaterally there are nonobstructive calculi, the largest being 7 mm in maximal dimension on the right. Within the distal left ureter but proximal to the bladder lumen there is an impacted 6 mm calculus that is not fully obstructive, but which is associated with [id number] left-sided hydronephrosis and hydroureter. It measures up to 1600 Hounsfield units in radiodensity. Note is made of moderate colonic obstipation. Dictated by: Dante Sims M.D. on 09/19/2020 at 11:14 Approved by: Dante Sims M.D. on 09/19/2020 at 11:24
== END ==
PROVIDERS: PCP Family Medicine; Referring Provider Urology; Visit Provider Urology
DX: G35 Multiple sclerosis (principal); N13.2 Hydronephrosis with renal and ureteral calculous obstruction; K59.00 Constipation, unspecified; F17.200 Nicotine dependence, unspecified, uncomplicated; Z87.448 Personal history of other diseases of urinary system
CPT/HCPCS: 74178; Q9967

== ENCOUNTER → 2023-05-06 16:29 | Outpatient (CLI) | payer OTHER, SELFPAY | PROVIDERS: PCP Family Medicine; Visit Provider Student in an Organized Health Care Education/Training Program | DX: R31.9 Hematuria, unspecified (principal) | CPT/HCPCS: 87086 ==

== ENCOUNTER → 2023-05-06 17:00 | Outpatient (CLI) | payer OTHER, SELFPAY ==
--- NOTE | 2023-05-06 17:02 | DI.RAD.S_ITS ---
PROCEDURE: XR KUB INDICATIONS: hx lrg stone req surg, gross hematuria, pain, DM type I TECHNIQUE: One view of the abdomen acquired. COMPARISON: [facility], CT, CT ABDOMEN PELVIS WO/W CON, 09/19/2020, 10:38. FINDINGS: Surgical changes and devices: None. Bowel: Bowel gas pattern is normal. Soft tissues: Probable vascular calcifications seen projecting over the left paraspinal region. A 6 mm calcification is seen along the right paraspinal region at the level of L4 fat could represent a ureteral calculus. Visualized solid organ contours appear normal in size. Bones: No suspicious bony lesions. IMPRESSION: 6 mm calcification projecting over the right paraspinal region is nonspecific but could represent a right ureteral calculus. CT KUB could be performed for further evaluation if indicated clinically. Approved by: Js Burk M.D. on 05/06/2023 at 17:25
== END ==
PROVIDERS: PCP Family Medicine; Referring Provider Student in an Organized Health Care Education/Training Program; Visit Provider Student in an Organized Health Care Education/Training Program
DX: M54.50 Low back pain, unspecified (principal); R30.0 Dysuria; R31.9 Hematuria, unspecified
CPT/HCPCS: 74018; 87086

== ENCOUNTER → 2023-07-01 14:16 | Outpatient (CLI) | payer OTHER, SELFPAY ==
--- NOTE | 2023-07-01 | DI.RAD.S_ITS ---
PROCEDURE: XR ABDOMEN 1V INDICATIONS: Calculus of ureter TECHNIQUE: One view of the abdomen acquired. COMPARISON: [facility], CR, XR KUB, 05/06/2023, 17:10. FINDINGS: Surgical changes and devices: None. Bowel: Bowel gas pattern is normal. Soft tissues: The recent KUB demonstrated a calcification to the right of L5, which is no longer present, likely representing interval passage of a right ureteral stone. There are vague calcifications projecting to the left renal hilum which suggest a possible early partial staghorn calculus. Bones: No suspicious bony lesions. IMPRESSION: 1. Probable interval passage of a right ureteral stone. 2. Suspect early forming partial left staghorn calculus. Comment: CT KUB may be helpful. Dictated by: William Lacy M.D. on 07/01/2023 at 18:20 Approved by: William Lacy M.D. on 07/01/2023 at 18:22
== END ==
PROVIDERS: PCP Family Medicine; Referring Provider Physician Assistant Medical; Visit Provider Physician Assistant Medical
DX: N20.1 Calculus of ureter (principal)
CPT/HCPCS: 74018

== ENCOUNTER 2023-11-18 05:40 | Inpatient (IN) | payer OTHER, SELFPAY ==
[2023-11-18] VITALS (52 sets, daily range): BP systolic 104–126; BP diastolic 59–72; PULSE 63–114; RESP 9–68; TEMP 36.4–36.8; O2SAT 94–100; BMI 17.5
--- NOTE | 2023-11-18 05:48 | DI.RAD.S_ITS ---
PROCEDURE: XR CHEST 1V INDICATIONS: hyperglycemia TECHNIQUE: One view of the chest was acquired. COMPARISON: None. FINDINGS: Surgical changes and devices: None. Lungs and pleura: Lungs are clear. No pleural effusions or pneumothorax. Mediastinum: Mediastinal contours appear normal. Heart size is normal. Bones and chest wall: No suspicious bony lesions. Overlying soft tissues appear unremarkable. IMPRESSION: No acute cardiopulmonary abnormality is seen. No significant discrepancy with the security shift manager radiology preliminary report. Dictated by: Titus Vázquez M.D. on 11/18/2023 at 7:56 Approved by: Titus Vázquez M.D. on 11/18/2023 at 7:56
--- NOTE | 2023-11-18 05:50 | ED.GENADULT ---
HPI - General Adult <Nettie Rainey DO - Last Filed: 11/24/23 07:06> General Chief complaint: Diabetic Problem Stated complaint: hyperglycemia Time Seen by Provider: 11/18/23 05:40 Source: EMS Mode of arrival: EMS Limitations: no limitations History of Present Illness HPI narrative: This is a 53-year-old female with known history of type 1 diabetes, multiple sclerosis who presents with complaint of nausea or vomiting, generally feeling unwell and elevated sugar. Patient states on Saturday she started feeling bad, she states her glucose monitor stopped working and she pulled off her insulin pump and has not had any insulin from Saturday night or Saturday morning. Patient does not think she has had any fevers. She denies chest pain or shortness of breath. States no abdominal back or flank pain. She states she has been having nausea and vomiting for the past 2 days. States no major changes to bowel movements. States she has been making urine. Denies dysuria, urgency or frequency. She states she has been trying to drink water but had difficulty keeping it down. Denies any rashes or skin changes. Patient states she has had surgery but does not recall what they are. Allergies to latex and amoxicillin. Denies tobacco, denies regular alcohol or recreational drugs. Per EMS patient's glucose was greater than 500 on point of care in the field. She received 500 mL of NS EN route. Related Data Home Medications Medication Instructions Recorded Confirmed cholecalciferol (vitamin D3) 125 5,000 unit PO DAILY 05/06/18 11/18/23 mcg (5,000 unit) tablet cyanocobalamin (vitamin B-12) 1,000 mcg PO DAILY 05/06/18 11/18/23 1,000 mcg tablet ferrous sulfate 325 mg (65 mg 325 mg PO BID 05/06/18 11/18/23 iron) tablet ibuprofen 200 mg tablet 800 mg PO Q6H PRN Pain 05/06/18 11/18/23 oxycodone-acetaminophen 5 mg-325 1 tab PO Q4-6H PRN Pain, Moderate 05/06/18 11/18/23 mg tablet venlafaxine 150 mg 150 mg PO DAILY 05/06/18 11/18/23 capsule,extended release 24 hr bupropion HCl 75 mg tablet 75 mg PO DAILY 11/18/23 11/18/23 chlorhexidine gluconate 0.12 % 15 ml buccal BID 11/18/23 11/18/23 mouthwash cyclobenzaprine 10 mg tablet 10 mg PO TID 11/18/23 11/18/23 diclofenac sodium 1 % topical gel 4 g topical QID 11/18/23 11/18/23 insulin aspart U-100 100 unit/mL See Protocol SUBCUT ACHS 11/18/23 11/18/23 (3 mL) subcutaneous pen insulin glargine 100 unit/mL 22 unit SUBCUT QPM 11/18/23 11/18/23 subcutaneous cartridge interferon beta-1a 30 mcg/0.5 mL 30 mcg IM WEEKLY 11/18/23 11/18/23 intramuscular syringe kit (Avonex) lisinopril 5 mg tablet 2.5 mg PO DAILY 11/18/23 11/18/23 rosuvastatin 10 mg tablet 10 mg PO DAILY 11/18/23 11/18/23 Previous Rx's Medication Instructions Recorded hydroxyzine pamoate 25 mg capsule 25 mg PO Q6-8H PRN spasms #20 caps 05/09/18 (Vistaril) oxycodone 5 mg capsule 5 mg PO Q4-6H PRN pain #30 caps 05/09/18 insulin aspart U-100 100 unit/mL 50 unit (0.5 mL) SUBCUT DAILY 28 11/20/23 subcutaneous solution days #30 mL insulin glargine 100 unit/mL (3 20 unit (0.2 mL) SUBCUT QAM #15 mL 11/20/23 mL) subcutaneous pen Allergies Allergy/AdvReac Type Severity Reaction Status Date / Time latex Allergy Severe Rash Verified 05/06/23 16:28 amoxicillin Allergy Unknown Verified 11/20/23 11:58 Review of Systems <Nettie Rainey DO - Last Filed: 11/24/23 07:06> Review of Systems ROS Unobtainable: All systems reviewed & are unremarkable except as noted in HPI and below Patient History <Nettie Rainey DO - Last Filed: 11/24/23 07:06> Medical History (Updated 11/18/23 @ 06:49 by Nettie Rainey DO) Restless leg Septal myocardial infarction Incomplete RBBB Multiple sclerosis Diabetes, gestational Hot flashes Primary osteoarthritis of left knee Primary osteoarthritis of right knee Low back pain with left-sided sciatica Easy bruising Perimenopausal Lumbar disc herniation with radiculopathy Social History household members: family Smoking Status: Current every day smoker Smoking Status: Current every day smoker alcohol intake frequency: holidays/special occasions only Substance Use Type: marijuana Exam <Nettie Rainey DO - Last Filed: 11/24/23 07:06> Narrative Exam Narrative: GENERAL: Alert and oriented, patient had thin. Answers questions easily but appears tired HEENT: Head normocephalic, atraumatic, EOMI, pupils reactive, face symmetric, moist mucous membranes NECK: Supple, full range of motion CARDIOVASCULAR: Tachycardic but regular rate and rhythm without murmurs, rubs or gallops. No edema bilateral lower extremities. RESPIRATORY: Breath sounds equal bilaterally, no wheezes rales or rhonchi. No tachypnea or accessory muscle use. ABDOMEN: Soft, nontender. Normoactive bowel sounds all 4 quadrants. No guarding or rebound, rigidity, no mass : No CVA tenderness EXTREMITIES: Normal range of motion, no clubbing or edema. Neurovascularly intact NEUROLOGICAL: Cranial nerves II through XII grossly intact. Moving all extremities SKIN: Warm, dry, no petechiae, no rashes or lesions. Initial Vital Signs Initial Vital Signs: Vital Signs Pulse Rate 114 H 11/18/23 05:40 Respiratory Rate 24 11/18/23 05:40 Blood Pressure 126/63 11/18/23 05:40 Pulse Oximetry 100 11/18/23 05:40 Oxygen Delivery Method Room Air 11/18/23 05:40 <Monique Espinal DO - Last Filed: 11/18/23 09:15> Initial Vital Signs Initial Vital Signs: Vital Signs Pulse Rate 114 H 11/18/23 05:40 Respiratory Rate 24 11/18/23 05:40 Blood Pressure 126/63 11/18/23 05:40 Pulse Oximetry 100 11/18/23 05:40 Oxygen Delivery Method Room Air 11/18/23 05:40 Course <Nettie Rainey DO - Last Filed: 11/24/23 07:06> Orders Ordered: Discontinued Medications Acetaminophen (Acetaminophen 325 Mg Tablet) 650 mg PO Q6H PRN PRN Reason: Fever/Mild Pain (1-3) Enoxaparin Sodium (Enoxaparin 40 Mg/0.4 Ml Syringe) 40 mg SUBCUT DAILY OSMEL Last Admin: 11/20/23 08:26 Dose: 40 mg Documented By: Admin: 11/19/23 09:34 Dose: 40 mg Documented By: Admin: 11/18/23 10:32 Dose: Not Given Documented By: KENRICK Lactated Ringer's (Lactated Ringers) 1,000 mls @ 1,000 mls/hr IV BOLUS ONE Stop: 11/18/23 06:47 Last Infusion: 11/18/23 07:05 Dose: Infused Documented By: Admin: 11/18/23 06:10 Dose: 1,000 mls/hr Documented By: TRINA INSULIN DRIP PREMIX (Myxredlin Drip Premix) 100 unit in 100 mls @ 4.92 mls/hr IV TITRATE OSMEL; Protocol Last Titration: 11/18/23 08:21 Dose: 0.12 unit/kg/hr, 6 mls/hr Documented By: CHASIDY Co-signed By: CHRISSY Admin: 11/18/23 06:57 Dose: 0.1 unit/kg/hr, 4.92 mls/hr Documented By: TRINA Co-signed By: HNG Calcium Gluconate 4.65 meq/ (Sodium Chloride) 60 mls @ 180 mls/hr IV NOW ONE Stop: 11/18/23 06:56 Last Infusion: 11/18/23 07:32 Dose: Infused Documented By: Admin: 11/18/23 07:05 Dose: 180 mls/hr Documented By: TRINA Lactated Ringer's (Lactated Ringers) 1,000 mls @ 100 mls/hr IV CONT OSMEL Last Infusion: 11/19/23 08:15 Dose: Infused Documented By: Admin: 11/19/23 06:15 Dose: 100 mls/hr Documented By: Infusion: 11/19/23 06:15 Dose: Infused Documented By: Admin: 11/18/23 20:22 Dose: 100 mls/hr Documented By: Infusion: 11/18/23 20:22 Dose: Infused Documented By: Infusion: 11/18/23 14:59 Dose: 100 mls/hr Documented By: Admin: 11/18/23 12:47 Dose: 200 mls/hr Documented By: Infusion: 11/18/23 12:03 Dose: Infused Documented By: Admin: 11/18/23 07:03 Dose: 200 mls/hr Documented By: TRINA Cefepime HCl 2 gm/ Sodium (Chloride) 100 mls @ 200 mls/hr IV NOW ONE Stop: 11/18/23 07:00 Last Infusion: 11/18/23 08:06 Dose: Infused Documented By: Admin: 11/18/23 07:32 Dose: 200 mls/hr Documented By: CHASIDY INSULIN DRIP PREMIX (Myxredlin Drip Premix) 100 unit in 100 mls @ 4.5 mls/hr IV TITRATE OSMEL; Protocol Stop: 11/19/23 10:30 Last Titration: 11/19/23 10:37 Dose: 0 unit/kg/hr, 0 mls/hr Documented By: CLP Co-signed By: Titration: 11/19/23 08:00 Dose: 0.05 unit/kg/hr, 2.2 mls/hr Documented By: CLP Co-signed By: Titration: 11/19/23 06:30 Dose: 0.08 unit/kg/hr, 3.6 mls/hr Documented By: SMS Co-signed By: MS(2) Titration: 11/19/23 05:00 Dose: 0.05 unit/kg/hr, 2.2 mls/hr Documented By: SMS Co-signed By: MS(2) Titration: 11/19/23 04:00 Dose: 0.02 unit/kg/hr, 0.9 mls/hr Documented By: SMS Co-signed By: MS(2) Titration: 11/19/23 02:14 Dose: 0.05 unit/kg/hr, 2.2 mls/hr Documented By: SMS Co-signed By: MS(2) Titration: 11/19/23 01:05 Dose: 0.08 unit/kg/hr, 3.6 mls/hr Documented By: SMS Co-signed By: MS(2) Titration: 11/18/23 23:05 Dose: 0.05 unit/kg/hr, 2.2 mls/hr Documented By: SMS Co-signed By: MS(2) Titration: 11/18/23 21:00 Dose: 0.02 unit/kg/hr, 0.9 mls/hr Documented By: SMS Co-signed By: JAGJIT Titration: 11/18/23 20:00 Dose: 0.05 unit/kg/hr, 2.2 mls/hr Documented By: DOMINGO Co-signed By: MS(2) Admin: 11/18/23 15:07 Dose: 0.1 unit/kg/hr, 4.5 mls/hr Documented By: KENRICK Co-signed By: NELI Titration: 11/18/23 15:07 Dose: Infused Documented By: KENRICK Co-signed By: NELI Titration: 11/18/23 14:50 Dose: 0.1 unit/kg/hr, 4.5 mls/hr Documented By: KENRICK Co-signed By: NELI Admin: 11/18/23 10:02 Dose: 0.15 unit/kg/hr, 6.75 mls/hr Documented By: KENRICK Co-signed By: NELI POTASSIUM CHLORIDE IN WATER (Potassium Cl 10 Meq/100 Ml Deborah) 10 meq in 100 mls @ 100 mls/hr IV Q1H OSMEL Stop: 11/18/23 15:59 Last Admin: 11/18/23 15:30 Dose: 100 mls/hr Documented By: Infusion: 11/18/23 15:19 Dose: Infused Documented By: Admin: 11/18/23 14:19 Dose: 100 mls/hr Documented By: KENRICK Dextrose/Sodium Chloride (Dextrose 5%-0.45% Ns) 1,000 mls @ 67.5 mls/hr IV CONT OSMEL Last Infusion: 11/19/23 10:37 Dose: 0 mls/hr Documented By: Admin: 11/19/23 06:16 Dose: 67.5 mls/hr Documented By: Infusion: 11/19/23 06:16 Dose: Infused Documented By: Infusion: 11/19/23 05:00 Dose: 67.5 mls/hr Documented By: Infusion: 11/19/23 04:00 Dose: 0 mls/hr Documented By: Infusion: 11/18/23 23:05 Dose: 67.5 mls/hr Documented By: Infusion: 11/18/23 21:48 Dose: 0 mls/hr Documented By: MS(2) Admin: 11/18/23 14:59 Dose: 67.5 mls/hr Documented By: KENRICK POTASSIUM CHLORIDE IN WATER (Potassium Cl 10 Meq/100 Ml Deborah) 10 meq in 100 mls @ 100 mls/hr IV Q1H OSMEL Stop: 11/18/23 20:44 Last Infusion: 11/18/23 22:18 Dose: Infused Documented By: [facility] Admin: 11/18/23 20:22 Dose: 100 mls/hr Documented By: Infusion: 11/18/23 20:00 Dose: Infused Documented By: [facility] Admin: 11/18/23 19:00 Dose: 100 mls/hr Documented By: KENRICK Dextrose (D10w) 1,000 mls @ 45 mls/hr IV NOW ONE Stop: 11/19/23 20:00 Last Infusion: 11/19/23 05:00 Dose: 0 mls/hr Documented By: Infusion: 11/19/23 04:00 Dose: 45 mls/hr Documented By: Infusion: 11/18/23 23:05 Dose: 0 mls/hr Documented By: [facility] Admin: 11/18/23 21:48 Dose: 45 mls/hr Documented By: MS(2) POTASSIUM CHLORIDE IN WATER (Potassium Cl 10 Meq/100 Ml Deborah) 10 meq in 100 mls @ 100 mls/hr IV Q1H OSMEL Stop: 11/19/23 00:44 Last Infusion: 11/19/23 02:14 Dose: Infused Documented By: [facility] Admin: 11/19/23 00:30 Dose: 100 mls/hr Documented By: [facility] Infusion: 11/19/23 00:04 Dose: Infused Documented By: [facility] Admin: 11/18/23 23:04 Dose: 100 mls/hr Documented By: DOMINGO POTASSIUM CHLORIDE IN WATER (Potassium Cl 10 Meq/100 Ml Deborah) 10 meq in 100 mls @ 100 mls/hr IV Q1H OSMEL Stop: 11/19/23 04:29 Last Admin: 11/19/23 04:09 Dose: 100 mls/hr Documented By: Infusion: 11/19/23 03:53 Dose: Infused Documented By: [facility] Admin: 11/19/23 02:53 Dose: 100 mls/hr Documented By: [facility] POTASSIUM CHLORIDE IN WATER (Potassium Cl 10 Meq/100 Ml Deborah) 10 meq in 100 mls @ 100 mls/hr IV Q1H OSMEL Stop: 11/19/23 08:29 Last Admin: 11/19/23 07:50 Dose: 100 mls/hr Documented By: Infusion: 11/19/23 07:40 Dose: Infused Documented By: Admin: 11/19/23 06:40 Dose: 100 mls/hr Documented By: DOMINGO Dextrose (D10w) 100 mls @ 1,200 mls/hr IV PRN PRN PRN Reason: Hypoglycemia Insulin Glargine (Insulin Glargine 100 Unit/Ml 3ml Pen) 20 unit SUBCUT DAILY [facility] Last Admin: 11/20/23 08:24 Dose: 20 unit Documented By: NELI Co-signed By: Admin: 11/19/23 09:33 Dose: 20 unit Documented By: OMER Co-signed By: Insulin Human Lispro (Insulin Lispro 100 Unit/Ml 3ml Vial) 0 unit SUBCUT [facility]; Protocol Last Admin: 11/20/23 11:42 Dose: 3 unit Documented By: NELI Co-signed By: Admin: 11/20/23 08:25 Dose: 7 unit Documented By: NELI Co-signed By: Admin: 11/19/23 21:41 Dose: Not Given Documented By: Admin: 11/19/23 17:43 Dose: 5 unit Documented By: OMER Co-signed By: Admin: 11/19/23 13:04 Dose: 5 unit Documented By: OMER Co-signed By: Insulin Human Lispro (Insulin Lispro 100 Unit/Ml 3ml Vial) 3 unit SUBCUT AC [facility] Last Admin: 11/20/23 11:41 Dose: 3 unit Documented By: NELI Co-signed By: Admin: 11/20/23 08:25 Dose: 3 unit Documented By: NELI Co-signed By: Admin: 11/19/23 17:43 Dose: 3 unit Documented By: OMER Co-signed By: Insulin Human Regular (Insulin Regular 100 Unit/Ml 3 Ml Vial) 4.5 unit IV NOW ONE Stop: 11/18/23 10:12 Last Admin: 11/18/23 11:02 Dose: 4.5 unit Documented By: KENRICK Co-signed By: NELI Insulin Human Regular (Insulin Regular 100 Unit/Ml 3 Ml Vial) 4.5 unit IV NOW ONE Stop: 11/18/23 11:00 Last Admin: 11/18/23 11:03 Dose: 4.5 unit Documented By: KENRICK Co-signed By: NELI Insulin Human Regular (Insulin Regular 100 Unit/Ml 3 Ml Vial) 4.5 unit IV NOW ONE Stop: 11/18/23 11:49 Last Admin: 11/18/23 12:00 Dose: 4.5 unit Documented By: KENRICK Co-signed By: NELI Insulin Human Regular (Insulin Regular 100 Unit/Ml 3 Ml Vial) 4.5 unit IV NOW ONE Stop: 11/18/23 12:52 Last Admin: 11/18/23 12:52 Dose: 4.5 unit Documented By: KENRICK Co-signed By: NELI Naloxone HCl (Naloxone 0.4 Mg/Ml Vial) 0.2 mg IV Q2MIN PRN PRN Reason: Opiate Reversal Oxycodone HCl (Oxycodone Ir 5 Mg Tablet) 5 mg PO Q3H PRN PRN Reason: Pain, Moderate (4-6) Vital Signs Vital signs: Vital Signs - 8 hr 11/18/23 05:40 11/18/23 05:54 11/18/23 05:54 Temperature 97.5 F L Pulse Rate 114 H 109 H Respiratory Rate 24 24 Blood Pressure 126/63 119/61 119/61 Pulse Oximetry 100 100 Oxygen Delivery Method Room Air 11/18/23 05:54 11/18/23 06:00 11/18/23 06:00 Temperature Pulse Rate 110 H 110 H Respiratory Rate 22 24 Blood Pressure 115/59 L Pulse Oximetry 100 100 Oxygen Delivery Method 11/18/23 06:10 11/18/23 06:10 11/18/23 06:20 Temperature Pulse Rate 107 H 108 H Respiratory Rate 23 23 Blood Pressure 118/60 Pulse Oximetry 100 100 Oxygen Delivery Method 11/18/23 06:20 11/18/23 06:30 11/18/23 06:30 Temperature Pulse Rate 102 H Respiratory Rate 22 Blood Pressure 112/61 124/67 Pulse Oximetry 100 Oxygen Delivery Method 11/18/23 06:40 11/18/23 06:40 11/18/23 07:01 Temperature Pulse Rate 108 H 108 H Respiratory Rate 21 21 Blood Pressure 118/66 Pulse Oximetry 100 99 Oxygen Delivery Method 11/18/23 07:30 11/18/23 07:40 11/18/23 07:50 Temperature 97.5 F L Pulse Rate 100 H 101 H 103 H Respiratory Rate 20 21 21 Blood Pressure 119/62 123/62 118/61 Pulse Oximetry 100 100 100 Oxygen Delivery Method Room Air Room Air Room Air 11/18/23 08:00 11/18/23 08:10 11/18/23 08:20 Temperature Pulse Rate 107 H 101 H 101 H Respiratory Rate 20 20 20 Blood Pressure 126/66 119/65 124/66 Pulse Oximetry 100 99 99 Oxygen Delivery Method Room Air Room Air Room Air <Monique Kylie, DO - Last Filed: 11/18/23 09:15> Orders Ordered: Discontinued Medications Acetaminophen (Acetaminophen 325 Mg Tablet) 650 mg PO Q6H PRN PRN Reason: Fever/Mild Pain (1-3) Enoxaparin Sodium (Enoxaparin 40 Mg/0.4 Ml Syringe) 40 mg SUBCUT DAILY [facility] Last Admin: 11/20/23 08:26 Dose: 40 mg Documented By: Admin: 11/19/23 09:34 Dose: 40 mg Documented By: Admin: 11/18/23 10:32 Dose: Not Given Documented By: KENRICK Lactated Ringer's (Lactated Ringers) 1,000 mls @ 1,000 mls/hr IV BOLUS ONE Stop: 11/18/23 06:47 Last Infusion: 11/18/23 07:05 Dose: Infused Documented By: Admin: 11/18/23 06:10 Dose: 1,000 mls/hr Documented By: TRINA INSULIN DRIP PREMIX (Myxredlin Drip Premix) 100 unit in 100 mls @ 4.92 mls/hr IV TITRATE OSMEL; Protocol Last Titration: 11/18/23 08:21 Dose: 0.12 unit/kg/hr, 6 mls/hr Documented By: CHASIDY Co-signed By: CHRISSY Admin: 11/18/23 06:57 Dose: 0.1 unit/kg/hr, 4.92 mls/hr Documented By: TRINA Co-signed By: HNG Calcium Gluconate 4.65 meq/ (Sodium Chloride) 60 mls @ 180 mls/hr IV NOW ONE Stop: 11/18/23 06:56 Last Infusion: 11/18/23 07:32 Dose: Infused Documented By: Admin: 11/18/23 07:05 Dose: 180 mls/hr Documented By: KH Lactated Ringer's (Lactated Ringers) 1,000 mls @ 100 mls/hr IV CONT OSMEL Last Infusion: 11/19/23 08:15 Dose: Infused Documented By: Admin: 11/19/23 06:15 Dose: 100 mls/hr Documented By: Infusion: 11/19/23 06:15 Dose: Infused Documented By: Admin: 11/18/23 20:22 Dose: 100 mls/hr Documented By: Infusion: 11/18/23 20:22 Dose: Infused Documented By: Infusion: 11/18/23 14:59 Dose: 100 mls/hr Documented By: Admin: 11/18/23 12:47 Dose: 200 mls/hr Documented By: Infusion: 11/18/23 12:03 Dose: Infused Documented By: Admin: 11/18/23 07:03 Dose: 200 mls/hr Documented By: TRINA Cefepime HCl 2 gm/ Sodium (Chloride) 100 mls @ 200 mls/hr IV NOW ONE Stop: 11/18/23 07:00 Last Infusion: 11/18/23 08:06 Dose: Infused Documented By: Admin: 11/18/23 07:32 Dose: 200 mls/hr Documented By: CHASIDY INSULIN DRIP PREMIX (Myxredlin Drip Premix) 100 unit in 100 mls @ 4.5 mls/hr IV TITRATE OSMEL; Protocol Stop: 11/19/23 10:30 Last Titration: 11/19/23 10:37 Dose: 0 unit/kg/hr, 0 mls/hr Documented By: OEMR Co-signed By: Titration: 11/19/23 08:00 Dose: 0.05 unit/kg/hr, 2.2 mls/hr Documented By: CLP Co-signed By: Titration: 11/19/23 06:30 Dose: 0.08 unit/kg/hr, 3.6 mls/hr Documented By: SMS Co-signed By: MS(2) Titration: 11/19/23 05:00 Dose: 0.05 unit/kg/hr, 2.2 mls/hr Documented By: SMS Co-signed By: MS(2) Titration: 11/19/23 04:00 Dose: 0.02 unit/kg/hr, 0.9 mls/hr Documented By: SMS Co-signed By: MS(2) Titration: 11/19/23 02:14 Dose: 0.05 unit/kg/hr, 2.2 mls/hr Documented By: SMS Co-signed By: MS(2) Titration: 11/19/23 01:05 Dose: 0.08 unit/kg/hr, 3.6 mls/hr Documented By: SMS Co-signed By: MS(2) Titration: 11/18/23 23:05 Dose: 0.05 unit/kg/hr, 2.2 mls/hr Documented By: SMS Co-signed By: MS(2) Titration: 11/18/23 21:00 Dose: 0.02 unit/kg/hr, 0.9 mls/hr Documented By: SMS Co-signed By: Titration: 11/18/23 20:00 Dose: 0.05 unit/kg/hr, 2.2 mls/hr Documented By: SMS Co-signed By: (2) Admin: 11/18/23 15:07 Dose: 0.1 unit/kg/hr, 4.5 mls/hr Documented By: KENRICK Co-signed By: NELI Titration: 11/18/23 15:07 Dose: Infused Documented By: KENRICK Co-signed By: NELI Titration: 11/18/23 14:50 Dose: 0.1 unit/kg/hr, 4.5 mls/hr Documented By: KENRICK Co-signed By: NELI Admin: 11/18/23 10:02 Dose: 0.15 unit/kg/hr, 6.75 mls/hr Documented By: KENRICK Co-signed By: NELI POTASSIUM CHLORIDE IN WATER (Potassium Cl 10 Meq/100 Ml Deborah) 10 meq in 100 mls @ 100 mls/hr IV Q1H OSMEL Stop: 11/18/23 15:59 Last Admin: 11/18/23 15:30 Dose: 100 mls/hr Documented By: Infusion: 11/18/23 15:19 Dose: Infused Documented By: Admin: 11/18/23 14:19 Dose: 100 mls/hr Documented By: KENRICK Dextrose/Sodium Chloride (Dextrose 5%-0.45% Ns) 1,000 mls @ 67.5 mls/hr IV CONT OSMEL Last Infusion: 11/19/23 10:37 Dose: 0 mls/hr Documented By: Admin: 11/19/23 06:16 Dose: 67.5 mls/hr Documented By: Infusion: 11/19/23 06:16 Dose: Infused Documented By: Infusion: 11/19/23 05:00 Dose: 67.5 mls/hr Documented By: Infusion: 11/19/23 04:00 Dose: 0 mls/hr Documented By: Infusion: 11/18/23 23:05 Dose: 67.5 mls/hr Documented By: Infusion: 11/18/23 21:48 Dose: 0 mls/hr Documented By: MS(2) Admin: 11/18/23 14:59 Dose: 67.5 mls/hr Documented By: KENRICK POTASSIUM CHLORIDE IN WATER (Potassium Cl 10 Meq/100 Ml Deborah) 10 meq in 100 mls @ 100 mls/hr IV Q1H OSMEL Stop: 11/18/23 20:44 Last Infusion: 11/18/23 22:18 Dose: Infused Documented By: Admin: 11/18/23 20:22 Dose: 100 mls/hr Documented By: Infusion: 11/18/23 20:00 Dose: Infused Documented By: Admin: 11/18/23 19:00 Dose: 100 mls/hr Documented By: KENRICK Dextrose (D10w) 1,000 mls @ 45 mls/hr IV NOW ONE Stop: 11/19/23 20:00 Last Infusion: 11/19/23 05:00 Dose: 0 mls/hr Documented By: Infusion: 11/19/23 04:00 Dose: 45 mls/hr Documented By: Infusion: 11/18/23 23:05 Dose: 0 mls/hr Documented By: Admin: 11/18/23 21:48 Dose: 45 mls/hr Documented By: (2) POTASSIUM CHLORIDE IN WATER (Potassium Cl 10 Meq/100 Ml Deborah) 10 meq in 100 mls @ 100 mls/hr IV Q1H OSMEL Stop: 11/19/23 00:44 Last Infusion: 11/19/23 02:14 Dose: Infused Documented By: Admin: 11/19/23 00:30 Dose: 100 mls/hr Documented By: Infusion: 11/19/23 00:04 Dose: Infused Documented By: Admin: 11/18/23 23:04 Dose: 100 mls/hr Documented By: DOMINGO POTASSIUM CHLORIDE IN WATER (Potassium Cl 10 Meq/100 Ml Deborah) 10 meq in 100 mls @ 100 mls/hr IV Q1H OSMEL Stop: 11/19/23 04:29 Last Admin: 11/19/23 04:09 Dose: 100 mls/hr Documented By: Infusion: 11/19/23 03:53 Dose: Infused Documented By: Admin: 11/19/23 02:53 Dose: 100 mls/hr Documented By: DOMINGO POTASSIUM CHLORIDE IN WATER (Potassium Cl 10 Meq/100 Ml Deborah) 10 meq in 100 mls @ 100 mls/hr IV Q1H OSMEL Stop: 11/19/23 08:29 Last Admin: 11/19/23 07:50 Dose: 100 mls/hr Documented By: Infusion: 11/19/23 07:40 Dose: Infused Documented By: Admin: 11/19/23 06:40 Dose: 100 mls/hr Documented By: DOMINGO Dextrose (D10w) 100 mls @ 1,200 mls/hr IV PRN PRN PRN Reason: Hypoglycemia Insulin Glargine (Insulin Glargine 100 Unit/Ml 3ml Pen) 20 unit SUBCUT DAILY [facility] Last Admin: 11/20/23 08:24 Dose: 20 unit Documented By: NELI Co-signed By: MS Admin: 11/19/23 09:33 Dose: 20 unit Documented By: OMER Co-signed By: Insulin Human Lispro (Insulin Lispro 100 Unit/Ml 3ml Vial) 0 unit SUBCUT [facility]; Protocol Last Admin: 11/20/23 11:42 Dose: 3 unit Documented By: NELI Co-signed By: MS Admin: 11/20/23 08:25 Dose: 7 unit Documented By: NELI Co-signed By: Admin: 11/19/23 21:41 Dose: Not Given Documented By: Admin: 11/19/23 17:43 Dose: 5 unit Documented By: CLP Co-signed By: MS Admin: 11/19/23 13:04 Dose: 5 unit Documented By: OMER Co-signed By: Insulin Human Lispro (Insulin Lispro 100 Unit/Ml 3ml Vial) 3 unit SUBCUT AC [facility] Last Admin: 11/20/23 11:41 Dose: 3 unit Documented By: NELI Co-signed By: MS Admin: 11/20/23 08:25 Dose: 3 unit Documented By: NELI Co-signed By: MS Admin: 11/19/23 17:43 Dose: 3 unit Documented By: CLP Co-signed By: Insulin Human Regular (Insulin Regular 100 Unit/Ml 3 Ml Vial) 4.5 unit IV NOW ONE Stop: 11/18/23 10:12 Last Admin: 11/18/23 11:02 Dose: 4.5 unit Documented By: KENRICK Co-signed By: NELI Insulin Human Regular (Insulin Regular 100 Unit/Ml 3 Ml Vial) 4.5 unit IV NOW ONE Stop: 11/18/23 11:00 Last Admin: 11/18/23 11:03 Dose: 4.5 unit Documented By: KENRICK Co-signed By: NELI Insulin Human Regular (Insulin Regular 100 Unit/Ml 3 Ml Vial) 4.5 unit IV NOW ONE Stop: 11/18/23 11:49 Last Admin: 11/18/23 12:00 Dose: 4.5 unit Documented By: KENRICK Co-signed By: NEIL Insulin Human Regular (Insulin Regular 100 Unit/Ml 3 Ml Vial) 4.5 unit IV NOW ONE Stop: 11/18/23 12:52 Last Admin: 11/18/23 12:52 Dose: 4.5 unit Documented By: KENRICK Co-signed By: NELI Naloxone HCl (Naloxone 0.4 Mg/Ml Vial) 0.2 mg IV Q2MIN PRN PRN Reason: Opiate Reversal Oxycodone HCl (Oxycodone Ir 5 Mg Tablet) 5 mg PO Q3H PRN PRN Reason: Pain, Moderate (4-6) Vital Signs Vital signs: Vital Signs - 8 hr 11/18/23 05:40 11/18/23 05:54 11/18/23 05:54 Temperature 97.5 F L Pulse Rate 114 H 109 H Respiratory Rate 24 24 Blood Pressure 126/63 119/61 119/61 Pulse Oximetry 100 100 Oxygen Delivery Method Room Air 11/18/23 05:54 11/18/23 06:00 11/18/23 06:00 Temperature Pulse Rate 110 H 110 H Respiratory Rate 22 24 Blood Pressure 115/59 L Pulse Oximetry 100 100 Oxygen Delivery Method 11/18/23 06:10 11/18/23 06:10 11/18/23 06:20 Temperature Pulse Rate 107 H 108 H Respiratory Rate 23 23 Blood Pressure 118/60 Pulse Oximetry 100 100 Oxygen Delivery Method 11/18/23 06:20 11/18/23 06:30 11/18/23 06:30 Temperature Pulse Rate 102 H Respiratory Rate 22 Blood Pressure 112/61 124/67 Pulse Oximetry 100 Oxygen Delivery Method 11/18/23 06:40 11/18/23 06:40 11/18/23 07:01 Temperature Pulse Rate 108 H 108 H Respiratory Rate 21 21 Blood Pressure 118/66 Pulse Oximetry 100 99 Oxygen Delivery Method 11/18/23 07:30 11/18/23 07:40 11/18/23 07:50 Temperature 97.5 F L Pulse Rate 100 H 101 H 103 H Respiratory Rate 20 21 21 Blood Pressure 119/62 123/62 118/61 Pulse Oximetry 100 100 100 Oxygen Delivery Method Room Air Room Air Room Air 11/18/23 08:00 11/18/23 08:10 11/18/23 08:20 Temperature Pulse Rate 107 H 101 H 101 H Respiratory Rate 20 20 20 Blood Pressure 126/66 119/65 124/66 Pulse Oximetry 100 99 99 Oxygen Delivery Method Room Air Room Air Room Air Medical Decision Making <Nettie Rainey, DO - Last Filed: 11/24/23 07:06> Lab Data 11/20/23 04:45 11/20/23 04:45 Labs: Lab Results 11/18/23 11/18/23 11/18/23 Range/Units 05:45 05:46 06:45 WBC 16.4 H (4.5-11.0) X10^3/uL RBC 4.67 (4.0-5.2) X10^6/uL Hgb 14.3 (12.0-16.0) g/dL Hct 45.5 (36-46) % MCV 97.4 (80-100) fL MCH 30.7 (26-34) PG MCHC 31.5 (30-36) % RDW 14.1 (11.6-14.8) % Plt Count 231 (150-400) X10^3/uL Neut % (Auto) 84.6 H (50-75) % Lymph % (Auto) 6.8 L (25-40) % [place] % (Auto) 7.7 (3-14) % Eos % (Auto) 0.1 L (2-4) % Baso % (Auto) 0.8 (0-2) % Neut # (Auto) 88449 H (3387-9442) /uL Lymph # (Auto) 1100 (7701-2246) /uL [place] # (Auto) 1300 H (0-900) /uL Eos # (Auto) 0 (0-450) /uL Baso # (Auto) 100 (0-100) /uL VBG pH 6.96 L* (7.33-7.43) VBG pCO2 < 18.0 L (45-50) mmHg VBG pO2 63 H (35-45) mmHg VBG HCO3 4 L (24-28) mmol/L VBG Total CO2 < 5 L (24-29) mmol/L VBG O2 Saturation 77 H (70-75) % VBG Base Excess -28.0 L (0-4) mmol/L FiO2 21 Sodium 116 L* (137-145) mmol/L Potassium 6.2 H (3.4-5.1) mmol/L Chloride 82 L (98-107) mmol/L Carbon Dioxide < 5 L* (22-32) mmol/L BUN 58 H (7-17) mg/dL Creatinine 2.95 H (0.52-1.04) mg/dL Estimated GFR 18 L (>60) mL/min BUN/Creatinine Ratio 19.7 (6-22) Glucose 880 H* (70-100) mg/dL Lactate 2.4 H (0.7-2.1) mmol/L Calcium 7.6 L (8.4-10.2) mg/dL Phosphorus 9.1 H* (2.5-4.5) mg/dL Magnesium 2.0 (1.6-2.3) mg/dL Total Bilirubin 0.6 (0.2-1.3) mg/dL AST 17 (14-36) IU/L ALT 14 (<35) IU/L Alkaline Phosphatase 115 (38-126) U/L Total Creatine Kinase 74 (30-135) U/L Troponin I 0.016 (0.01-0.034) ng/mL Total Protein 6.1 L (6.3-8.2) g/dL Albumin 3.9 (3.5-5.0) g/dL Globulin 2.2 (1.7-4.1) g/dL Albumin/Globulin Ratio 1.8 (1.0-2.8) Lipase 1101 H (23-300) U/L Procalcitonin 1.55 H (<0.5) ng/mL Urine Color Yellow Urine Appearance Clear Urine pH 5.0 (4.5-8.0) Ur Specific [place] 1.025 (1.000-1.035) Urine Protein 2+ H (Negative) Urine Glucose (UA) 3+ H (Negative) g/dL Urine Ketones 2+ H (NEGATIVE) Urine Occult Blood 2+ H (Negative) Urine Nitrate Negative (Negative) Urine Bilirubin 1+ H (NEGATIVE) Ur Bilirubin Confirm Negative (Negative) Urine Urobilinogen 0.2 (0.2) E.U./dL Ur Leukocyte Esterase Negative (NEGATIVE) Urine RBC None seen (0-5/HPF) Urine WBC None seen (0-5/HPF) Ur Squamous Epith Cells 0-1 /hpf (0-5/HPF) Urine Bacteria None seen (None) Ur Culture Indicated? Cult not indicated Vol Urine Centrifuged 10ml (spun) Ur Random Sodium 25 L (30-90) mmol/L Urine Creatinine 35.5 mg/dL U Opiates 300ng/mL cut Negative (Negative) Ur Oxycodone Screen Negative (Negative) Urine Methadone Screen Negative (Negative) Ur Barbiturates Screen Negative (Negative) U Tricyclic Antidepress Negative (Negative) Ur Phencyclidine Scrn Negative (Negative) Ur Amphetamines Screen Negative (Negative) U Methamphetamines Scrn Negative (Negative) Ur MDMA Scrn (Ecstasy) Negative (Negative) U Benzodiazepines Scrn Negative (Negative) Urine Cocaine Screen Negative (Negative) U Marijuana (THC) Screen Positive H (Negative) Urine Specific [place] (Normal) Ketones 16.17 H (<0.27) mmol/L Ur Creatinine (Normal) 11/18/23 11/18/23 11/18/23 Range/Units 06:45 08:00 08:33 WBC (4.5-11.0) X10^3/uL RBC (4.0-5.2) X10^6/uL Hgb (12.0-16.0) g/dL Hct (36-46) % MCV (80-100) fL MCH (26-34) PG MCHC (30-36) % RDW (11.6-14.8) % Plt Count (150-400) X10^3/uL Neut % (Auto) (50-75) % Lymph % (Auto) (25-40) % [place] % (Auto) (3-14) % Eos % (Auto) (2-4) % Baso % (Auto) (0-2) % Neut # (Auto) (1951-7024) /uL Lymph # (Auto) (1936-7675) /uL [place] # (Auto) (0-900) /uL Eos # (Auto) (0-450) /uL Baso # (Auto) (0-100) /uL VBG pH (7.33-7.43) VBG pCO2 (45-50) mmHg VBG pO2 (35-45) mmHg VBG HCO3 (24-28) mmol/L VBG Total CO2 (24-29) mmol/L VBG O2 Saturation (70-75) % VBG Base Excess (0-4) mmol/L FiO2 Sodium 120 L (137-145) mmol/L Potassium 5.4 H (3.4-5.1) mmol/L Chloride 89 L (98-107) mmol/L Carbon Dioxide < 5 L* (22-32) mmol/L BUN 56 H (7-17) mg/dL Creatinine 2.56 H (0.52-1.04) mg/dL Estimated GFR 22 L (>60) mL/min BUN/Creatinine Ratio 21.9 (6-22) Glucose 749 H* (70-100) mg/dL Lactate 1.2 (0.7-2.1) mmol/L Calcium 8.1 L (8.4-10.2) mg/dL Phosphorus 7.2 H D (2.5-4.5) mg/dL Magnesium (1.6-2.3) mg/dL Total Bilirubin 0.5 (0.2-1.3) mg/dL AST 20 (14-36) IU/L ALT 14 (<35) IU/L Alkaline Phosphatase 112 (38-126) U/L Total Creatine Kinase (30-135) U/L Troponin I (0.01-0.034) ng/mL Total Protein 6.1 L (6.3-8.2) g/dL Albumin 3.7 (3.5-5.0) g/dL Globulin 2.4 (1.7-4.1) g/dL Albumin/Globulin Ratio 1.5 (1.0-2.8) Lipase (23-300) U/L Procalcitonin (<0.5) ng/mL Urine Color Urine Appearance Urine pH Normal (4.5-8.0) Ur Specific [place] (1.000-1.035) Urine Protein (Negative) Urine Glucose (UA) (Negative) g/dL Urine Ketones (NEGATIVE) Urine Occult Blood (Negative) Urine Nitrate (Negative) Urine Bilirubin (NEGATIVE) Ur Bilirubin Confirm (Negative) Urine Urobilinogen (0.2) E.U./dL Ur Leukocyte Esterase (NEGATIVE) Urine RBC (0-5/HPF) Urine WBC (0-5/HPF) Ur Squamous Epith Cells (0-5/HPF) Urine Bacteria (None) Ur Culture Indicated? Vol Urine Centrifuged Ur Random Sodium (30-90) mmol/L Urine Creatinine mg/dL U Opiates 300ng/mL cut (Negative) Ur Oxycodone Screen (Negative) Urine Methadone Screen (Negative) Ur Barbiturates Screen (Negative) U Tricyclic Antidepress (Negative) Ur Phencyclidine Scrn (Negative) Ur Amphetamines Screen (Negative) U Methamphetamines Scrn (Negative) Ur MDMA Scrn (Ecstasy) (Negative) U Benzodiazepines Scrn (Negative) Urine Cocaine Screen (Negative) U Marijuana (THC) Screen (Negative) Urine Specific [place] Normal (Normal) Ketones (<0.27) mmol/L Ur Creatinine Normal (Normal) Imaging Data Chest x-ray: My Impression: nap Radiologist's Impression: No acute process-overnight rad read. ECG Data Attestation: I personally reviewed and interpreted this ECG as follows: Prior ECG tracings: available for review Interpretation: Sinus tachycardia rate of 109 NE 200 QRS of 92 QTC 465. Patient has slipped depression in leads 2 3 AVF and lateral leads no ST depression, no elevation. Incomplete right bundle-branch noted on prior EKG as well MDM Narrative Medical decision making narrative: 53-year-old female with known history of diabetes, MS who presents with complaint of nausea vomiting and feeling unwell since Saturday removed her insulin pump on Saturday night or Saturday morning and is hyperglycemic. She is tachycardic, she appears quite dry on examination suspect DKA with a glucose of greater than 500 on point of care. Labs: Patient has a white count of 16.4 hemoglobin of 14.3, platelets of 231 predominance of neutrophils, no bandemia reported. Sodium is 116 when corrected for hyperglycemia is 128, potassium 6.2 without hemolysis, patient's BUN is 58 with a creatinine of 2.95, chloride 82 with a glucose of 880, lactate of 2 for calcium of 7.6 phosphorus Patient's LFTs are negative, lipase is 1101. Troponin is negative. Procalcitonin VBG shows a pH of 6.96 with a pCO2 of 17, PO2 of 63 and a bicarb of 3.9., acidosis metabolic with respi EKG shows sinus tach, slope T-waves but no ST depression/elevation, consistent with hyperkalemia. Chest x-ray, prelim no acute process. Overnight rad read is no acute process. Urine Patient received 1 L NS from EMS, received an additional 1L of Lactated Ringer's. Patient plan to continue fluids with hydration patient appears quite dehydrated clinically and by labs. CT KUB to rule out any obstructive changes. We will initiate insulin but without potassium supplementation as glucose is 88 with a bicarb less than 5 chloride of 82 with a potassium of 6.2 without hemolysis, anion gap of 29. Patient has positive ketones and is acidotic at 6.96. We will replace calcium for hypocalcemia as well as elevated potassium. . Plan for repeat electrolytes to re-evaluate potassium and VBG patient may receive bicarb. Asencio catheter was placed for strict I&Os. Clear yellow urine immediately out. Updated patient on current findings. She expresses understanding. Is unfamiliar with DKA. Patient signed out to Dr. Espinal while awaiting CT results, procal. Patient continues to be tachycardic, BP has been consistetly 110s. <Monique Espinal, DO - Last Filed: 11/18/23 09:15> Lab Data Labs: Lab Results 11/18/23 11/18/23 11/18/23 Range/Units 05:45 05:46 06:45 WBC 16.4 H (4.5-11.0) X10^3/uL RBC 4.67 (4.0-5.2) X10^6/uL Hgb 14.3 (12.0-16.0) g/dL Hct 45.5 (36-46) % MCV 97.4 (80-100) fL MCH 30.7 (26-34) PG MCHC 31.5 (30-36) % RDW 14.1 (11.6-14.8) % Plt Count 231 (150-400) X10^3/uL Neut % (Auto) 84.6 H (50-75) % Lymph % (Auto) 6.8 L (25-40) % [place] % (Auto) 7.7 (3-14) % Eos % (Auto) 0.1 L (2-4) % Baso % (Auto) 0.8 (0-2) % Neut # (Auto) 80645 H (4645-3505) /uL Lymph # (Auto) 1100 (0424-7470) /uL [place] # (Auto) 1300 H (0-900) /uL Eos # (Auto) 0 (0-450) /uL Baso # (Auto) 100 (0-100) /uL VBG pH 6.96 L* (7.33-7.43) VBG pCO2 < 18.0 L (45-50) mmHg VBG pO2 63 H (35-45) mmHg VBG HCO3 4 L (24-28) mmol/L VBG Total CO2 < 5 L (24-29) mmol/L VBG O2 Saturation 77 H (70-75) % VBG Base Excess -28.0 L (0-4) mmol/L FiO2 21 Sodium 116 L* (137-145) mmol/L Potassium 6.2 H (3.4-5.1) mmol/L Chloride 82 L (98-107) mmol/L Carbon Dioxide < 5 L* (22-32) mmol/L BUN 58 H (7-17) mg/dL Creatinine 2.95 H (0.52-1.04) mg/dL Estimated GFR 18 L (>60) mL/min BUN/Creatinine Ratio 19.7 (6-22) Glucose 880 H* (70-100) mg/dL Lactate 2.4 H (0.7-2.1) mmol/L Calcium 7.6 L (8.4-10.2) mg/dL Phosphorus 9.1 H* (2.5-4.5) mg/dL Magnesium 2.0 (1.6-2.3) mg/dL Total Bilirubin 0.6 (0.2-1.3) mg/dL AST 17 (14-36) IU/L ALT 14 (<35) IU/L Alkaline Phosphatase 115 (38-126) U/L Total Creatine Kinase 74 (30-135) U/L Troponin I 0.016 (0.01-0.034) ng/mL Total Protein 6.1 L (6.3-8.2) g/dL Albumin 3.9 (3.5-5.0) g/dL Globulin 2.2 (1.7-4.1) g/dL Albumin/Globulin Ratio 1.8 (1.0-2.8) Lipase 1101 H (23-300) U/L Procalcitonin 1.55 H (<0.5) ng/mL Urine Color Yellow Urine Appearance Clear Urine pH 5.0 (4.5-8.0) Ur Specific [place] 1.025 (1.000-1.035) Urine Protein 2+ H (Negative) Urine Glucose (UA) 3+ H (Negative) g/dL Urine Ketones 2+ H (NEGATIVE) Urine Occult Blood 2+ H (Negative) Urine Nitrate Negative (Negative) Urine Bilirubin 1+ H (NEGATIVE) Ur Bilirubin Confirm Negative (Negative) Urine Urobilinogen 0.2 (0.2) E.U./dL Ur Leukocyte Esterase Negative (NEGATIVE) Urine RBC None seen (0-5/HPF) Urine WBC None seen (0-5/HPF) Ur Squamous Epith Cells 0-1 /hpf (0-5/HPF) Urine Bacteria None seen (None) Ur Culture Indicated? Cult not indicated Vol Urine Centrifuged 10ml (spun) Ur Random Sodium 25 L (30-90) mmol/L Urine Creatinine 35.5 mg/dL U Opiates 300ng/mL cut Negative (Negative) Ur Oxycodone Screen Negative (Negative) Urine Methadone Screen Negative (Negative) Ur Barbiturates Screen Negative (Negative) U Tricyclic Antidepress Negative (Negative) Ur Phencyclidine Scrn Negative (Negative) Ur Amphetamines Screen Negative (Negative) U Methamphetamines Scrn Negative (Negative) Ur MDMA Scrn (Ecstasy) Negative (Negative) U Benzodiazepines Scrn Negative (Negative) Urine Cocaine Screen Negative (Negative) U Marijuana (THC) Screen Positive H (Negative) Urine Specific [place] (Normal) Ketones 16.17 H (<0.27) mmol/L Ur Creatinine (Normal) 11/18/23 11/18/23 11/18/23 Range/Units 06:45 08:00 08:33 WBC (4.5-11.0) X10^3/uL RBC (4.0-5.2) X10^6/uL Hgb (12.0-16.0) g/dL Hct (36-46) % MCV (80-100) fL MCH (26-34) PG MCHC (30-36) % RDW (11.6-14.8) % Plt Count (150-400) X10^3/uL Neut % (Auto) (50-75) % Lymph % (Auto) (25-40) % [place] % (Auto) (3-14) % Eos % (Auto) (2-4) % Baso % (Auto) (0-2) % Neut # (Auto) (4861-8051) /uL Lymph # (Auto) (7645-1054) /uL [place] # (Auto) (0-900) /uL Eos # (Auto) (0-450) /uL Baso # (Auto) (0-100) /uL VBG pH (7.33-7.43) VBG pCO2 (45-50) mmHg VBG pO2 (35-45) mmHg VBG HCO3 (24-28) mmol/L VBG Total CO2 (24-29) mmol/L VBG O2 Saturation (70-75) % VBG Base Excess (0-4) mmol/L FiO2 Sodium 120 L (137-145) mmol/L Potassium 5.4 H (3.4-5.1) mmol/L Chloride 89 L (98-107) mmol/L Carbon Dioxide < 5 L* (22-32) mmol/L BUN 56 H (7-17) mg/dL Creatinine 2.56 H (0.52-1.04) mg/dL Estimated GFR 22 L (>60) mL/min BUN/Creatinine Ratio 21.9 (6-22) Glucose 749 H* (70-100) mg/dL Lactate 1.2 (0.7-2.1) mmol/L Calcium 8.1 L (8.4-10.2) mg/dL Phosphorus 7.2 H D (2.5-4.5) mg/dL Magnesium (1.6-2.3) mg/dL Total Bilirubin 0.5 (0.2-1.3) mg/dL AST 20 (14-36) IU/L ALT 14 (<35) IU/L Alkaline Phosphatase 112 (38-126) U/L Total Creatine Kinase (30-135) U/L Troponin I (0.01-0.034) ng/mL Total Protein 6.1 L (6.3-8.2) g/dL Albumin 3.7 (3.5-5.0) g/dL Globulin 2.4 (1.7-4.1) g/dL Albumin/Globulin Ratio 1.5 (1.0-2.8) Lipase (23-300) U/L Procalcitonin (<0.5) ng/mL Urine Color Urine Appearance Urine pH Normal (4.5-8.0) Ur Specific [place] (1.000-1.035) Urine Protein (Negative) Urine Glucose (UA) (Negative) g/dL Urine Ketones (NEGATIVE) Urine Occult Blood (Negative) Urine Nitrate (Negative) Urine Bilirubin (NEGATIVE) Ur Bilirubin Confirm (Negative) Urine Urobilinogen (0.2) E.U./dL Ur Leukocyte Esterase (NEGATIVE) Urine RBC (0-5/HPF) Urine WBC (0-5/HPF) Ur Squamous Epith Cells (0-5/HPF) Urine Bacteria (None) Ur Culture Indicated? Vol Urine Centrifuged Ur Random Sodium (30-90) mmol/L Urine Creatinine mg/dL U Opiates 300ng/mL cut (Negative) Ur Oxycodone Screen (Negative) Urine Methadone Screen (Negative) Ur Barbiturates Screen (Negative) U Tricyclic Antidepress (Negative) Ur Phencyclidine Scrn (Negative) Ur Amphetamines Screen (Negative) U Methamphetamines Scrn (Negative) Ur MDMA Scrn (Ecstasy) (Negative) U Benzodiazepines Scrn (Negative) Urine Cocaine Screen (Negative) U Marijuana (THC) Screen (Negative) Urine Specific [place] Normal (Normal) Ketones (<0.27) mmol/L Ur Creatinine Normal (Normal) Imaging Data CT scan - abdomen/pelvis: Radiologist's Impression: PROCEDURE: CT KIDNEY URETER BLADDER (KUB) INDICATIONS: DKA, JEFFERY, elevated lipase TECHNIQUE: Axial sections were acquired from the lung bases to the pubic symphysis. Coronal and sagittal reformats were performed. For radiation dose reduction, the following was used: automated exposure control, adjustment of mA and/or kV according to patient size. COMPARISON: [facility], CR, XR ABDOMEN 1V, 07/01/2023, 14:59. [facility], CT, CT LOW DOSE LUNG CA SCREENING, 06/24/2022, 15:07. [facility], CT, CT ABDOMEN PELVIS WO/W CON, 09/19/2020, 10:38. [facility], CT, CT KUB, 09/25/2023, 16:22. FINDINGS: Image quality: Diagnostic. Lower Chest: No significant findings. URINARY: Right Kidney: There is a 6 mm stone in right kidney with CT density 663 HU. Right Ureter: No hydroureter. Left Kidney: No stones or hydronephrosis. Left Ureter: No hydroureter. Bladder: Normal wall thickness. No stones. ABDOMEN: Liver: No contour-deforming solid mass. Normal size. Moderate hepatic steatosis. Gallbladder: Gallbladder is not visualized. No radiopaque gallstones. Biliary ducts: No biliary dilation. Pancreas: No ductal dilation. Spleen: Size is within normal limits. Adrenal Glands: No adrenal nodules. Stomach and Bowel: There is segmental thickening of a loop of bowel in the right lower quadrant, probably the cecum. Evaluation of bowel is limited due to the absence of intravenous and IV contrast. Stomach is distended with an air-fluid level. Normal small bowel and colonic caliber. No free fluid in pelvis. Peritoneum: No abnormal intraperitoneal fluid. No free air. Ventral Wall: No hernia. Abdominal Nodes: No enlarged retroperitoneal or mesenteric lymph nodes. Vessels: Aorta and inferior vena cava are normal in size. PELVIS: Pelvic Organs: Unremarkable. Pelvic Nodes: Unremarkable. Miscellaneous: No inguinal hernias are seen. Bones: Unremarkable. IMPRESSION: 1. There is a 6 mm nonobstructive stone in right kidney. No hydronephrosis. 2. Markedly distended stomach with an air-fluid level. The findings may be secondary to gastric outlet obstruction or gastroparesis. 3. Focal bowel thickening in the area of the right lower quadrant, probably involving the cecum. Alternatively, it could be segmental thickening of distal ileum. 4. Pancreas appears unremarkable, which does not exclude clinical pancreatitis. 5. Moderate hepatic steatosis. 6. No free fluid. No significant discrepancy with the shift superintendent radiology preliminary report. Dictated by: Titus Vázquez M.D. on 11/18/2023 at 7:50 MDM Narrative Medical decision making narrative: 53-year-old female with known history of diabetes, MS who presents with complaint of nausea vomiting and feeling unwell since Saturday removed her insulin pump on Saturday night or Saturday morning and is hyperglycemic. She is tachycardic, she appears quite dry on examination suspect DKA with a glucose of greater than 500 on point of care. Labs: Patient has a white count of 16.4 hemoglobin of 14.3, platelets of 231 predominance of neutrophils, no bandemia reported. Sodium is 116 when corrected for hyperglycemia is 128, potassium 6.2 without hemolysis, patient's BUN is 58 with a creatinine of 2.95, chloride 82 with a glucose of 880, lactate of 2 for calcium of 7.6 phosphorus Patient's LFTs are negative, lipase is 1101. Troponin is negative. Procalcitonin VBG shows a pH of 6.96 with a pCO2 of 17, PO2 of 63 and a bicarb of 3.9., acidosis metabolic with respi EKG shows sinus tach, slope T-waves but no ST depression/elevation, consistent with hyperkalemia. Chest x-ray, prelim no acute process. Overnight rad read is no acute process. Urine Patient received 1 L NS from EMS, received an additional 1L of Lactated Ringer's. Patient plan to continue fluids with hydration patient appears quite dehydrated clinically and by labs. CT KUB to rule out any obstructive changes. We will initiate insulin but without potassium supplementation as glucose is 88 with a bicarb less than 5 chloride of 82 with a potassium of 6.2 without hemolysis, anion gap of 29. Patient has positive ketones and is acidotic at 6.96. We will replace calcium for hypocalcemia as well as elevated potassium. . Plan for repeat electrolytes to re-evaluate potassium and VBG patient may receive bicarb. Asencio catheter was placed for strict I&Os. Clear yellow urine immediately out. Updated patient on current findings. She expresses understanding. Is unfamiliar with DKA. Patient signed out to Dr. Espinal while awaiting CT results, procal. Patient continues to be tachycardic, BP has been consistetly 110s. Patient signed out to me by Dr. Rainey I have seen evaluated patient myself. Doses membranes very dry. Abdomen is soft nontender. She remains on insulin drip. Glucose is greater than 500 repeat electrolytes are pending. CT shows right kidney stone without hydro not in the ureter, distended stomach possibly secondary to gastric outlet obstruction or gastroparesis. Clinically abdomen is soft and nondistended pancreas appears unremarkable without clinical signs of pancreatitis though she is lipase of 1100. She is also noted to have creatinine of 2.9, therefore IV contrast was not used. Likely secondary to severe dehydration from DKA. Dr. Klein accepts patient Critical Care Time <Nettie Rainey, DO - Last Filed: 11/24/23 07:06> Critical Care Time Critical Care Time: Yes Total Critical Care Time: 45 Attestation: The high probability of a clinically significant, sudden or life threatening deterioration of the [cardiac] system(s) required my full and direct attention, intervention and personal management. The aggregate critical care time was [] minutes. This time is in addition to time spent performing reported procedures but includes the following: [x] Data Review and interpretation [x] Patient assessment and monitoring of vital signs [x] Documentation [x] Medication orders and management Discharge Plan Departure Patient Disposition: Admitted As Inpatient Clinical Impression: DKA (diabetic ketoacidosis), Hyperkalemia, JEFFERY (acute kidney injury), Dehydration Admit Date/Time: 11/18/23 09:19 Admit Provider: Raheel Klein
[2023-11-18 06:03] LABS: Add Manual Diff / Slide Review NO; Basophils Absolute Auto 100 /uL (0-100); Basophils Percent Auto 0.8 % (0-2); Eosinophils Absolute Auto 0 /uL (0-450); Eosinophils Percent Auto 0.1 % (2-4); Hematocrit 45.5 % (36-46); Hemoglobin 14.3 g/dL (12.0-16.0); Lymphocytes Absolute Auto 1100 /uL (1100-4500); Lymphocytes Percent Auto 6.8 % (25-40); Mean Corpuscular HGB Conc 31.5 % (30-36); Mean Corpuscular Hemoglobin 30.7 PG (26-34); Mean Corpuscular Volume 97.4 fL (80-100); Monocytes Absolute Auto 1300 /uL (0-900); Monocytes Percent Auto 7.7 % (3-14); Neutrophils Absolute Auto 13800 /uL (1500-7000); Neutrophils Percent Auto 84.6 % (50-75); Platelet Count 231 X10^3/uL (150-400); Red Blood Cell Count 4.67 X10^6/uL (4.0-5.2); Red Cell Distribution Width 14.1 % (11.6-14.8); White Blood Cell Count 16.4 X10^3/uL (4.5-11.0)
[2023-11-18 06:08] LABS: pH VBG 6.96 (7.33-7.43)
[2023-11-18 06:09] LABS: Lactate (Lactic Acid) 2.4 mmol/L (0.7-2.1)
[2023-11-18 06:10] LABS: Lipase 1101 U/L (23-300)
[2023-11-18 06:10] LABS: PCO2 VBG < 18.0 mmHg (45-50)
[2023-11-18] MEDS: LACTATED RINGERS 1,000 ML 1000 ML IV (06:10)
[2023-11-18 06:11] LABS: Fractionated Inspired Oxygen 21; HCO3 VBG 4 mmol/L (24-28); Oxygen Saturation VBG 77 % (70-75); PO2 VBG 63 mmHg (35-45); Total CO2 VBG < 5 mmol/L (24-29)
[2023-11-18 06:11] LABS: Creatine Kinase 74 U/L (30-135)
[2023-11-18 06:12] LABS: Alanine Aminotransferase 14 IU/L (<35); Albumin 3.9 g/dL (3.5-5.0); Albumin Globulin Ratio 1.8 (1.0-2.8); Alkaline Phosphatase 115 U/L (38-126); Aspartate Aminotransferase 17 IU/L (14-36); BUN Creatinine Ratio 19.7 (6-22); Bilirubin Total 0.6 mg/dL (0.2-1.3); Blood Urea Nitrogen 58 mg/dL (7-17); Calcium 7.6 mg/dL (8.4-10.2); Chloride 82 mmol/L (98-107); Estimated Glomerular Filt Rate 18 mL/min (>60); Globulin 2.2 g/dL (1.7-4.1); HEMOLYSIS 18 (0-50); Total Protein 6.1 g/dL (6.3-8.2)
[2023-11-18 06:23] LABS: Troponin I 0.016 ng/mL (0.01-0.034)
[2023-11-18 06:25] LABS: Potassium 6.2 mmol/L (3.4-5.1)
[2023-11-18 06:31] LABS: Carbon Dioxide < 5 mmol/L (22-32); Glucose 880 mg/dL (70-100); Sodium 116 mmol/L (137-145)
--- NOTE | 2023-11-18 06:33 | DI.CT.S_ITS ---
PROCEDURE: CT KIDNEY URETER BLADDER (KUB) INDICATIONS: DKA, JEFFERY, elevated lipase TECHNIQUE: Axial sections were acquired from the lung bases to the pubic symphysis. Coronal and sagittal reformats were performed. For radiation dose reduction, the following was used: automated exposure control, adjustment of mA and/or kV according to patient size. COMPARISON: [facility], CR, XR ABDOMEN 1V, 07/01/2023, 14:59. [facility], CT, CT LOW DOSE LUNG CA SCREENING, 06/24/2022, 15:07. [facility], CT, CT ABDOMEN PELVIS WO/W CON, 09/19/2020, 10:38. [facility], CT, CT KUB, 09/25/2023, 16:22. FINDINGS: Image quality: Diagnostic. Lower Chest: No significant findings. URINARY: Right Kidney: There is a 6 mm stone in right kidney with CT density 663 HU. Right Ureter: No hydroureter. Left Kidney: No stones or hydronephrosis. Left Ureter: No hydroureter. Bladder: Normal wall thickness. No stones. ABDOMEN: Liver: No contour-deforming solid mass. Normal size. Moderate hepatic steatosis. Gallbladder: Gallbladder is not visualized. No radiopaque gallstones. Biliary ducts: No biliary dilation. Pancreas: No ductal dilation. Spleen: Size is within normal limits. Adrenal Glands: No adrenal nodules. Stomach and Bowel: There is segmental thickening of a loop of bowel in the right lower quadrant, probably the cecum. Evaluation of bowel is limited due to the absence of intravenous and IV contrast. Stomach is distended with an air-fluid level. Normal small bowel and colonic caliber. No free fluid in pelvis. Peritoneum: No abnormal intraperitoneal fluid. No free air. Ventral Wall: No hernia. Abdominal Nodes: No enlarged retroperitoneal or mesenteric lymph nodes. Vessels: Aorta and inferior vena cava are normal in size. PELVIS: Pelvic Organs: Unremarkable. Pelvic Nodes: Unremarkable. Miscellaneous: No inguinal hernias are seen. Bones: Unremarkable. IMPRESSION: 1. There is a 6 mm nonobstructive stone in right kidney. No hydronephrosis. 2. Markedly distended stomach with an air-fluid level. The findings may be secondary to gastric outlet obstruction or gastroparesis. 3. Focal bowel thickening in the area of the right lower quadrant, probably involving the cecum. Alternatively, it could be segmental thickening of distal ileum. 4. Pancreas appears unremarkable, which does not exclude clinical pancreatitis. 5. Moderate hepatic steatosis. 6. No free fluid. No significant discrepancy with the slot floor supervisor radiology preliminary report. Dictated by: Titus Vázquez M.D. on 11/18/2023 at 7:50 Approved by: Titus Vázquez M.D. on 11/18/2023 at 8:11
[2023-11-18 06:41] LABS: Procalcitonin 1.55 ng/mL (<0.5)
--- NOTE | 2023-11-18 06:47 | PC.NURSE ---
pt's BLE noted mottled and cool to touch, bruno placed with clear yellow returned, pt tolerated procedure well
[2023-11-18 06:48] LABS: Phosphorous 9.1 mg/dL (2.5-4.5)
[2023-11-18] MEDS: INSULIN DRIP PREMIX 100 UNIT/100 ML PLAST..BAG IV ×2 (06:57→15:07)
[2023-11-18 06:58] LABS: Appearance Urine UA CLEAR; Bilirubin Urine UA 1+ (NEGATIVE); Color Urine UA YELLOW; Glucose Urine UA 3+ g/dL (Negative); Ketones Urine UA 2+ (NEGATIVE); Leukocyte Esterase Urine UA NEGATIVE (NEGATIVE); Nitrite Urine UA NEGATIVE (Negative); Occult Blood Urine UA 2+ (Negative); Protein Urine UA 2+ (Negative); Specific Gravity Urine UA 1.025 (1.000-1.035); UR Morphine/Opiate cutoff 300 Negative (Negative); Ur Creatinine Normal (Normal); Ur Specific Gravity Normal (Normal); Urine Amphetamines Negative (Negative); Urine Barbiturates Negative (Negative); Urine Benzodiazepines Negative (Negative); Urine Cocaine Negative (Negative); Urine MDMA Negative (Negative); Urine Methadone Negative (Negative); Urine Methamphetamines Negative (Negative); Urine Oxycodone Negative (Negative); Urine Phencyclidine Negative (Negative); Urine Tetrahydrocannabinol Positive (Negative); Urine Tricyclic Antidepressant Negative (Negative); Urine pH Normal (Normal); Urobilinogen Urine UA 0.2 E.U./dL (0.2)
[2023-11-18] MEDS: LACTATED RINGERS 1,000 ML 200 ML IV ×2 (07:03→12:47)
[2023-11-18] MEDS: CALCIUM GLUCONATE 4.65 MEQ in SODIUM CHLORIDE 0.9% 50 ML 180 MEQ IV (07:05)
[2023-11-18 07:06] LABS: Ictotest Urine Negative (Negative)
[2023-11-18 07:07] LABS: Bacteria Urine None Seen; Culture Indicated Urine Cult Not Indicated; RBC Urine None Seen (0-5/HPF); Squamous Epithelial Cell Urine 0-1 /HPF (0-5/HPF); Urine Volume 10mL (spun); WBC Urine None Seen (0-5/HPF)
[2023-11-18 07:19] LABS: Creatinine Urine Random 35.5 mg/dL; Sodium Urine Random 25 mmol/L (30-90)
[2023-11-18 07:31] LABS: Reflexed Lactate in 2 Hours Y
[2023-11-18] MEDS: CEFEPIME 2 GM in SODIUM CHLORIDE 0.9% 100 ML IV (07:32)
[2023-11-18 07:47] LABS: Ketones (Beta-Hydroxybutyrate) 16.17 mmol/L (<0.27)
[2023-11-18 08:19] LABS: Alanine Aminotransferase 14 IU/L (<35); Albumin 3.7 g/dL (3.5-5.0); Albumin Globulin Ratio 1.5 (1.0-2.8); Alkaline Phosphatase 112 U/L (38-126); Aspartate Aminotransferase 20 IU/L (14-36); BUN Creatinine Ratio 21.9 (6-22); Bilirubin Total 0.5 mg/dL (0.2-1.3); Blood Urea Nitrogen 56 mg/dL (7-17); Calcium 8.1 mg/dL (8.4-10.2); Chloride 89 mmol/L (98-107); Estimated Glomerular Filt Rate 22 mL/min (>60); Globulin 2.4 g/dL (1.7-4.1); HEMOLYSIS < 15 (0-50); Lactate 2HR (Lactic Acid Rflx) 1.2 mmol/L (0.7-2.1); Potassium 5.4 mmol/L (3.4-5.1); Sodium 120 mmol/L (137-145); Total Protein 6.1 g/dL (6.3-8.2)
[2023-11-18 08:21] LABS: Carbon Dioxide < 5 mmol/L (22-32)
[2023-11-18 08:27] LABS: Glucose 749 mg/dL (70-100)
[2023-11-18 08:47] LABS: Phosphorous 7.2 mg/dL (2.5-4.5)
[2023-11-18 09:44] LABS: Alanine Aminotransferase 14 IU/L (<35); Albumin Globulin Ratio 1.5 (1.0-2.8); Alkaline Phosphatase 108 U/L (38-126); Aspartate Aminotransferase 21 IU/L (14-36); BUN Creatinine Ratio 25.3 (6-22); Bilirubin Total 0.6 mg/dL (0.2-1.3); Blood Urea Nitrogen 56 mg/dL (7-17); Calcium 8.5 mg/dL (8.4-10.2); Chloride 92 mmol/L (98-107); Estimated Glomerular Filt Rate 26 mL/min (>60); Globulin 2.6 g/dL (1.7-4.1); HEMOLYSIS 31 (0-50); Sodium 123 mmol/L (137-145); Total Protein 6.6 g/dL (6.3-8.2)
[2023-11-18 09:51] LABS: Carbon Dioxide < 5 mmol/L (22-32); Glucose 662 mg/dL (70-100)
[2023-11-18] MEDS: INSULIN DRIP PREMIX 100 UNIT/100 ML PLAST..BAG 6.75 UNIT IV (10:02)
[2023-11-18] MEDS: INSULIN REGULAR 100 UNIT/ML 3 ML VIAL IV ×4 (11:02→12:52)
--- NOTE | 2023-11-18 11:02 | PM.HP.1 ---
History of Present Illness History of Present Illness Date Patient Seen: 11/18/23 Time Patient Seen: 10:40 Chief complaint: hyperglycemia Narrative: This is a 53 year old female with PMH of MS, DM2 with insulin pump, CAD, HTN, HLD who presented nausea and vomiting and weakness. States her pump stopped working 3 days prior to admission and had not replaced her pump. Denies fever or chills, may have slight urinary frequency but not recently. She fell asleep quickly during the interview as the patient was very acidotic on presentation from DKA. In the ER, she had elevated anion gap, ketones, and marked acidosis. She was started on insulin infusion and admitted to the ICU for DKA. [facility] Medical History (Updated 11/18/23 @ 06:49 by Nettie Rainey DO) Restless leg Septal myocardial infarction Incomplete RBBB Multiple sclerosis Diabetes, gestational Hot flashes Primary osteoarthritis of left knee Primary osteoarthritis of right knee Low back pain with left-sided sciatica Easy bruising Perimenopausal Lumbar disc herniation with radiculopathy Social History household members: family Smoking Status: Current every day smoker Meds Home Medications and Allergies Home Medications Medication Instructions Recorded Confirmed Type cholecalciferol (vitamin D3) 125 5,000 unit PO DAILY 05/06/18 11/18/23 History mcg (5,000 unit) tablet cyanocobalamin (vitamin B-12) 1,000 mcg PO DAILY 05/06/18 11/18/23 History 1,000 mcg tablet ferrous sulfate 325 mg (65 mg 325 mg PO BID 05/06/18 11/18/23 History iron) tablet ibuprofen 200 mg tablet 800 mg PO Q6H PRN Pain 05/06/18 11/18/23 History oxycodone-acetaminophen 5 mg-325 1 tab PO Q4-6H PRN Pain, Moderate 05/06/18 11/18/23 History mg tablet venlafaxine 150 mg 150 mg PO DAILY 05/06/18 11/18/23 History capsule,extended release 24 hr hydroxyzine pamoate 25 mg capsule 25 mg PO Q6-8H PRN spasms #20 caps 05/09/18 11/18/23 Rx (Vistaril) oxycodone 5 mg capsule 5 mg PO Q4-6H PRN pain #30 caps 05/09/18 11/18/23 Rx bupropion HCl 75 mg tablet 75 mg PO DAILY 11/18/23 11/18/23 History chlorhexidine gluconate 0.12 % 15 ml buccal BID 11/18/23 11/18/23 History mouthwash cyclobenzaprine 10 mg tablet 10 mg PO TID 11/18/23 11/18/23 History diclofenac sodium 1 % topical gel 4 g topical QID 11/18/23 11/18/23 History insulin aspart U-100 100 unit/mL See Protocol SUBCUT ACHS 11/18/23 11/18/23 History (3 mL) subcutaneous pen insulin glargine 100 unit/mL 22 unit SUBCUT QPM 11/18/23 11/18/23 History subcutaneous cartridge interferon beta-1a 30 mcg/0.5 mL 30 mcg IM WEEKLY 11/18/23 11/18/23 History intramuscular syringe kit (Avonex) lisinopril 5 mg tablet 2.5 mg PO DAILY 11/18/23 11/18/23 History rosuvastatin 10 mg tablet 10 mg PO DAILY 11/18/23 11/18/23 History Allergies Allergy/AdvReac Type Severity Reaction Status Date / Time latex Allergy Severe Rash Verified 05/06/23 16:28 amoxicillin Allergy Verified 05/06/23 16:28 Review of Systems Review of Systems Narrative: Unable to perform due to marked lethargy reliably. Exam Vital Signs (past 8 hours): - 11/18/23 05:40 11/18/23 05:54 11/18/23 05:54 Temperature 97.5 F L Pulse Rate 114 H 109 H Respiratory Rate 24 24 Blood Pressure 126/63 119/61 119/61 Pulse Oximetry 100 100 Oxygen Delivery Method Room Air 11/18/23 05:54 11/18/23 06:00 11/18/23 06:00 Temperature Pulse Rate 110 H 110 H Respiratory Rate 22 24 Blood Pressure 115/59 L Pulse Oximetry 100 100 Oxygen Delivery Method 11/18/23 06:10 11/18/23 06:10 11/18/23 06:20 Temperature Pulse Rate 107 H 108 H Respiratory Rate 23 23 Blood Pressure 118/60 Pulse Oximetry 100 100 Oxygen Delivery Method 11/18/23 06:20 11/18/23 06:30 11/18/23 06:30 Temperature Pulse Rate 102 H Respiratory Rate 22 Blood Pressure 112/61 124/67 Pulse Oximetry 100 Oxygen Delivery Method 11/18/23 06:40 11/18/23 06:40 11/18/23 07:01 Temperature Pulse Rate 108 H 108 H Respiratory Rate 21 21 Blood Pressure 118/66 Pulse Oximetry 100 99 Oxygen Delivery Method 11/18/23 07:30 11/18/23 07:40 11/18/23 07:50 Temperature 97.5 F L Pulse Rate 100 H 101 H 103 H Respiratory Rate 20 21 21 Blood Pressure 119/62 123/62 118/61 Pulse Oximetry 100 100 100 Oxygen Delivery Method Room Air Room Air Room Air 11/18/23 08:00 11/18/23 08:10 11/18/23 08:20 Temperature Pulse Rate 107 H 101 H 101 H Respiratory Rate 20 20 20 Blood Pressure 126/66 119/65 124/66 Pulse Oximetry 100 99 99 Oxygen Delivery Method Room Air Room Air Room Air 11/18/23 08:30 11/18/23 09:00 11/18/23 09:30 Temperature Pulse Rate 101 H 109 H Respiratory Rate 20 23 Blood Pressure 120/68 116/61 112/64 Pulse Oximetry 100 99 Oxygen Delivery Method Room Air Room Air 11/18/23 09:30 11/18/23 09:42 11/18/23 09:42 Temperature Pulse Rate 103 H 105 H Respiratory Rate 25 H Blood Pressure 112/65 Pulse Oximetry 100 100 Oxygen Delivery Method 11/18/23 10:00 11/18/23 10:00 11/18/23 10:30 Temperature Pulse Rate 96 H 97 H Respiratory Rate 21 20 Blood Pressure 112/64 Pulse Oximetry 99 98 Oxygen Delivery Method 11/18/23 10:50 Temperature 98.2 F Pulse Rate Respiratory Rate Blood Pressure Pulse Oximetry Oxygen Delivery Method Oxygen Delivery Method Room Air Narrative Exam Narrative: Gen: No acute distress, arousable but falls asleep easily, keeps eyes closed HEENT: Very dry MM, no tongue laceration CV: tachycardia, slight, regular, no m/r/g Pulm: shallow breaths slight tachypnea, CTA b/l Abd: S NT ND Ext: no edema Objective Labs 11/18/23 05:45 11/18/23 13:35 Labs: Laboratory Results - last 24 hr 11/18/23 11/18/23 11/18/23 05:45 05:46 06:45 WBC 16.4 H RBC 4.67 Hgb 14.3 Hct 45.5 MCV 97.4 MCH 30.7 MCHC 31.5 RDW 14.1 Plt Count 231 Neut % (Auto) 84.6 H Lymph % (Auto) 6.8 L [place] % (Auto) 7.7 Eos % (Auto) 0.1 L Baso % (Auto) 0.8 Neut # (Auto) 96757 H Lymph # (Auto) 1100 [place] # (Auto) 1300 H Eos # (Auto) 0 Baso # (Auto) 100 VBG pH 6.96 L* VBG pCO2 < 18.0 L VBG pO2 63 H VBG HCO3 4 L VBG Total CO2 < 5 L VBG O2 Saturation 77 H VBG Base Excess -28.0 L FiO2 21 Sodium 116 L* Potassium 6.2 H Chloride 82 L Carbon Dioxide < 5 L* BUN 58 H Creatinine 2.95 H Estimated GFR 18 L BUN/Creatinine Ratio 19.7 Glucose 880 H* Lactate 2.4 H Calcium 7.6 L Phosphorus 9.1 H* Magnesium 2.0 Total Bilirubin 0.6 AST 17 ALT 14 Alkaline Phosphatase 115 Total Creatine Kinase 74 Troponin I 0.016 Total Protein 6.1 L Albumin 3.9 Globulin 2.2 Albumin/Globulin Ratio 1.8 Lipase 1101 H Procalcitonin 1.55 H Urine Color Yellow Urine Appearance Clear Urine pH 5.0 Ur Specific [place] 1.025 Urine Protein 2+ H Urine Glucose (UA) 3+ H Urine Ketones 2+ H Urine Occult Blood 2+ H Urine Nitrate Negative Urine Bilirubin 1+ H Ur Bilirubin Confirm Negative Urine Urobilinogen 0.2 Ur Leukocyte Esterase Negative Urine RBC None seen Urine WBC None seen Ur Squamous Epith Cells 0-1 /hpf Urine Bacteria None seen Ur Culture Indicated? Cult not indicated Vol Urine Centrifuged 10ml (spun) Ur Random Sodium 25 L Urine Creatinine 35.5 U Opiates 300ng/mL cut Negative Ur Oxycodone Screen Negative Urine Methadone Screen Negative Ur Barbiturates Screen Negative U Tricyclic Antidepress Negative Ur Phencyclidine Scrn Negative Ur Amphetamines Screen Negative U Methamphetamines Scrn Negative Ur MDMA Scrn (Ecstasy) Negative U Benzodiazepines Scrn Negative Urine Cocaine Screen Negative U Marijuana (THC) Screen Positive H Urine Specific [place] Ketones 16.17 H Ur Creatinine 11/18/23 11/18/23 11/18/23 06:45 08:00 08:33 WBC RBC Hgb Hct MCV MCH MCHC RDW Plt Count Neut % (Auto) Lymph % (Auto) [place] % (Auto) Eos % (Auto) Baso % (Auto) Neut # (Auto) Lymph # (Auto) [place] # (Auto) Eos # (Auto) Baso # (Auto) VBG pH VBG pCO2 VBG pO2 VBG HCO3 VBG Total CO2 VBG O2 Saturation VBG Base Excess FiO2 Sodium 120 L Potassium 5.4 H Chloride 89 L Carbon Dioxide < 5 L* BUN 56 H Creatinine 2.56 H Estimated GFR 22 L BUN/Creatinine Ratio 21.9 Glucose 749 H* Lactate 1.2 Calcium 8.1 L Phosphorus 7.2 H D Magnesium Total Bilirubin 0.5 AST 20 ALT 14 Alkaline Phosphatase 112 Total Creatine Kinase Troponin I Total Protein 6.1 L Albumin 3.7 Globulin 2.4 Albumin/Globulin Ratio 1.5 Lipase Procalcitonin Urine Color Urine Appearance Urine pH Normal Ur Specific [place] Urine Protein Urine Glucose (UA) Urine Ketones Urine Occult Blood Urine Nitrate Urine Bilirubin Ur Bilirubin Confirm Urine Urobilinogen Ur Leukocyte Esterase Urine RBC Urine WBC Ur Squamous Epith Cells Urine Bacteria Ur Culture Indicated? Vol Urine Centrifuged Ur Random Sodium Urine Creatinine U Opiates 300ng/mL cut Ur Oxycodone Screen Urine Methadone Screen Ur Barbiturates Screen U Tricyclic Antidepress Ur Phencyclidine Scrn Ur Amphetamines Screen U Methamphetamines Scrn Ur MDMA Scrn (Ecstasy) U Benzodiazepines Scrn Urine Cocaine Screen U Marijuana (THC) Screen Urine Specific [place] Normal Ketones Ur Creatinine Normal 11/18/23 09:20 WBC RBC Hgb Hct MCV MCH MCHC RDW Plt Count Neut % (Auto) Lymph % (Auto) [place] % (Auto) Eos % (Auto) Baso % (Auto) Neut # (Auto) Lymph # (Auto) [place] # (Auto) Eos # (Auto) Baso # (Auto) VBG pH VBG pCO2 VBG pO2 VBG HCO3 VBG Total CO2 VBG O2 Saturation VBG Base Excess FiO2 Sodium 123 L Potassium 5.0 Chloride 92 L Carbon Dioxide < 5 L* BUN 56 H Creatinine 2.21 H Estimated GFR 26 L BUN/Creatinine Ratio 25.3 H Glucose 662 H* Lactate Calcium 8.5 Phosphorus Magnesium Total Bilirubin 0.6 AST 21 ALT 14 Alkaline Phosphatase 108 Total Creatine Kinase Troponin I Total Protein 6.6 Albumin 4.0 Globulin 2.6 Albumin/Globulin Ratio 1.5 Lipase Procalcitonin Urine Color Urine Appearance Urine pH Ur Specific [place] Urine Protein Urine Glucose (UA) Urine Ketones Urine Occult Blood Urine Nitrate Urine Bilirubin Ur Bilirubin Confirm Urine Urobilinogen Ur Leukocyte Esterase Urine RBC Urine WBC Ur Squamous Epith Cells Urine Bacteria Ur Culture Indicated? Vol Urine Centrifuged Ur Random Sodium Urine Creatinine U Opiates 300ng/mL cut Ur Oxycodone Screen Urine Methadone Screen Ur Barbiturates Screen U Tricyclic Antidepress Ur Phencyclidine Scrn Ur Amphetamines Screen U Methamphetamines Scrn Ur MDMA Scrn (Ecstasy) U Benzodiazepines Scrn Urine Cocaine Screen U Marijuana (THC) Screen Urine Specific [place] Ketones Ur Creatinine Assessment & Plan Assessment & Plan narrative: 1. DKA with coma / acute metabolic encephalopathy - continue insulin infusion per protocol, goal is for closed anion gap, and bicarb >15 - given a dose of cefepime and vanco in the ER. Elevated procalcitonin, but no clinical evidence currently of infection. CXR is negative, no obvious signs or symptoms on exam or history of infection, and UA negative on presentation as well. Will hold on antibiotics at this time. If febrile will resume antibiotics, repeat CXR for evidence of pneumonia. - once ready to titrate off drip, will have patient get new insulin and reservoir set to replace home insulin pump. - for now q1 hr glucose, q4hr bmp. Follow hospital DKA protocol. 2. JEFFERY with hyperkalemia and hyperphosphatemia and mild hyponatremia - will continue additional LR for now in addition to D5 1/2 NS required with DKA protocol. - Cr trending down. Hyperkalemia improving with insulin therapy, will likely need to replete soon. - Sodium is borderline low with correction, likely due to dehydration. Continue above IV fluids. - Phos also improving. 3. Elevated lipase - suspect due to lack of insulin, no abdominal pain currently or signs of pancreatitis on imaging - will repeat lipase tomorrow AM 4. Multiple sclerosis - can continue home medications, patient is behind on her interferon, will resume once back on insulin pump therapy if no additional signs of infection moving forward. 5. HTN - hold home medications in JEFFERY and dehydration for now, resume if hypertensive diet: okay for CLD I have utilized all available immediate resources to obtain, update, or review the patient's current medications. Code: Full, surrogate is patient's spouse DVT: lovenox daily I spent 45 minutes providing critical care management this patient. This excludes time spent in performing separately billed procedures.
[2023-11-18 11:28] LABS: Fractionated Inspired Oxygen 21; HCO3 VBG 8 mmol/L (24-28); Oxygen Saturation VBG 87 % (70-75); PCO2 VBG 18.9 mmHg (45-50); PO2 VBG 61 mmHg (35-45); Total CO2 VBG 8 mmol/L (24-29); pH VBG 7.22 (7.33-7.43)
[2023-11-18 13:54] LABS: BUN Creatinine Ratio 40.2 (6-22); Blood Urea Nitrogen 51 mg/dL (7-17); Calcium 8.7 mg/dL (8.4-10.2); Carbon Dioxide 13 mmol/L (22-32); Chloride 102 mmol/L (98-107); Estimated Glomerular Filt Rate 50 mL/min (>60); Glucose 338 mg/dL (70-100); HEMOLYSIS < 15 (0-50); Potassium 4.4 mmol/L (3.4-5.1); Sodium 129 mmol/L (137-145)
[2023-11-18] MEDS: POTASSIUM CHLORIDE IN WATER 10 MEQ/100 ML PIGGYBACK 100 MEQ IV ×5 (14:19→23:04)
[2023-11-18] MEDS: DEXTROSE 5%-0.45% NS 1,000 ML 67.5 ML IV (14:59)
--- NOTE | 2023-11-18 16:41 | PC.NURSE ---
Admit: Pt arrived via stretcher from ED to rm [id number] at approximately 0940. BG 662 per lab draw. Insulin drip titrated per protocol (See MAR). Pt A&Ox4, fatigued, VSS, NSR to STach on telemetry. BG Q1H (see DKA protocol flowsheet) and insulin drip titrated per protocol and fluids given per protocol (see MAR). Pt advanced to clears, pt tolerating water and broth. 2,700 mL emptied from bruno catheter. VSS, care ongoing, will continue to monitor.
--- NOTE | 2023-11-18 16:43 | P.TELICUCN_ITS ---
History of Present Illness Consult details IF CAMERA ACTIVATED, patient seen via real-time interactive audiovisual communication: Camera activated Date Patient Seen: 11/18/23 Chief complaint: hyperglycemia Consent obtained for tele-sample patternmaker care: Yes Patient Location: ICU Provider location (State): [place] Other participants/roles: RN Narrative: 53 year old owman with DM1 transferred to the ICU for further managemnt of DKA. initally presneitng with n/v and that insulin pump has been malfucntioning initally with BG 749, bicarb < 5 and severe acidosis,. [facility] Medical History (Updated 11/18/23 @ 06:49 by Nettie Rainey DO) Restless leg Septal myocardial infarction Incomplete RBBB Multiple sclerosis Diabetes, gestational Hot flashes Primary osteoarthritis of left knee Primary osteoarthritis of right knee Low back pain with left-sided sciatica Easy bruising Perimenopausal Lumbar disc herniation with radiculopathy Social History household members: family Smoking Status: Current every day smoker Current Medications Current Medications Medications: Home Medications cholecalciferol (vitamin D3) 125 mcg (5,000 unit) tablet 5,000 unit PO DAILY 05/06/18 [History Confirmed 11/18/23] cyanocobalamin (vitamin B-12) 1,000 mcg tablet 1,000 mcg PO DAILY 05/06/18 [History Confirmed 11/18/23] ferrous sulfate 325 mg (65 mg iron) tablet 325 mg PO BID 05/06/18 [History Confirmed 11/18/23] ibuprofen 200 mg tablet 800 mg PO Q6H PRN Pain 05/06/18 [History Confirmed 11/18/23] oxycodone-acetaminophen 5 mg-325 mg tablet 1 tab PO Q4-6H PRN Pain, Moderate 05/06/18 [History Confirmed 11/18/23] venlafaxine 150 mg capsule,extended release 24 hr 150 mg PO DAILY 05/06/18 [History Confirmed 11/18/23] hydroxyzine pamoate 25 mg capsule (Vistaril) 25 mg PO Q6-8H PRN spasms #20 caps 05/09/18 [Rx Confirmed 11/18/23] oxycodone 5 mg capsule 5 mg PO Q4-6H PRN pain #30 caps 05/09/18 [Rx Confirmed 11/18/23] bupropion HCl 75 mg tablet 75 mg PO DAILY 11/18/23 [History Confirmed 11/18/23] chlorhexidine gluconate 0.12 % mouthwash 15 ml buccal BID 11/18/23 [History Confirmed 11/18/23] cyclobenzaprine 10 mg tablet 10 mg PO TID 11/18/23 [History Confirmed 11/18/23] diclofenac sodium 1 % topical gel 4 g topical QID 11/18/23 [History Confirmed 11/18/23] insulin aspart U-100 100 unit/mL (3 mL) subcutaneous pen See Protocol SUBCUT ACHS 11/18/23 [History Confirmed 11/18/23] insulin glargine 100 unit/mL subcutaneous cartridge 22 unit SUBCUT QPM 11/18/23 [History Confirmed 11/18/23] interferon beta-1a 30 mcg/0.5 mL intramuscular syringe kit (Avonex) 30 mcg IM WEEKLY 11/18/23 [History Confirmed 11/18/23] lisinopril 5 mg tablet 2.5 mg PO DAILY 11/18/23 [History Confirmed 11/18/23] rosuvastatin 10 mg tablet 10 mg PO DAILY 11/18/23 [History Confirmed 11/18/23] Visit Medications (administered) Generic Name Dose Route Start Last Admin Trade Name Niki PRN Reason Stop Dose Admin Enoxaparin Sodium 40 mg 11/18/23 09:50 11/18/23 10:32 Enoxaparin 40 Mg/0.4 Ml Syringe SUBCUT Not Given DAILY OSMEL Lactated Ringer's 1,000 mls @ 100 mls/hr 11/18/23 06:45 11/18/23 14:59 Lactated Ringers IV 100 mls/hr CONT OSMEL Infusion INSULIN DRIP PREMIX 100 unit in 100 mls @ 4.5 mls/hr 11/18/23 10:00 11/18/23 15:07 Myxredlin Drip Premix IV 0.1 unit/kg/hr TITRATE OSMEL 4.5 mls/hr Administration Protocol 0.1 UNIT/KG/HR Dextrose/Sodium Chloride 1,000 mls @ 67.5 mls/hr 11/18/23 15:00 11/18/23 14:59 Dextrose 5%-0.45% Ns IV 67.5 mls/hr CONT OSMEL Administration Exam Vital Signs (past 8 hours): - 11/18/23 09:00 11/18/23 09:30 11/18/23 09:30 Temperature Pulse Rate 109 H 103 H Respiratory Rate 23 25 H Blood Pressure 116/61 112/64 Pulse Oximetry 99 100 Oxygen Delivery Method Room Air 11/18/23 09:42 11/18/23 09:42 11/18/23 09:50 Temperature Pulse Rate 105 H Respiratory Rate Blood Pressure 112/65 Pulse Oximetry 100 Oxygen Delivery Method Room Air 11/18/23 09:50 11/18/23 10:00 11/18/23 10:00 Temperature Pulse Rate 100 H 96 H Respiratory Rate 24 21 Blood Pressure 112/64 Pulse Oximetry 99 99 Oxygen Delivery Method 11/18/23 10:30 11/18/23 10:50 11/18/23 11:00 Temperature 98.2 F Pulse Rate 97 H 90 Respiratory Rate 20 21 Blood Pressure Pulse Oximetry 98 98 Oxygen Delivery Method 11/18/23 11:00 11/18/23 11:30 11/18/23 12:00 Temperature Pulse Rate 91 H Respiratory Rate 21 Blood Pressure 105/62 113/66 Pulse Oximetry 96 Oxygen Delivery Method 11/18/23 12:00 11/18/23 12:30 11/18/23 13:00 Temperature Pulse Rate 85 86 Respiratory Rate 22 21 Blood Pressure 119/63 Pulse Oximetry 97 96 Oxygen Delivery Method 11/18/23 13:00 11/18/23 13:30 11/18/23 14:00 Temperature Pulse Rate 86 88 86 Respiratory Rate 42 H 68 H 23 Blood Pressure Pulse Oximetry 96 94 95 Oxygen Delivery Method 11/18/23 14:16 11/18/23 14:16 11/18/23 14:30 Temperature Pulse Rate 83 85 Respiratory Rate 23 24 Blood Pressure 107/61 Pulse Oximetry 95 96 Oxygen Delivery Method 11/18/23 15:00 11/18/23 15:00 11/18/23 15:30 Temperature Pulse Rate 87 83 Respiratory Rate 24 20 Blood Pressure 109/67 Pulse Oximetry 96 97 Oxygen Delivery Method 11/18/23 16:00 11/18/23 16:02 11/18/23 16:02 Temperature Pulse Rate 84 84 Respiratory Rate 23 23 Blood Pressure 104/60 Pulse Oximetry 98 98 Oxygen Delivery Method Oxygen Delivery Method Room Air Narrative Exam Narrative: pt ill appearing somnlescentg but arousable and conversive rate contolled Objective Labs 11/18/23 05:45 11/18/23 13:35 Labs: Laboratory Results - last 24 hr 11/18/23 11/18/23 11/18/23 05:45 05:46 06:45 WBC 16.4 H RBC 4.67 Hgb 14.3 Hct 45.5 MCV 97.4 MCH 30.7 MCHC 31.5 RDW 14.1 Plt Count 231 Neut % (Auto) 84.6 H Lymph % (Auto) 6.8 L [place] % (Auto) 7.7 Eos % (Auto) 0.1 L Baso % (Auto) 0.8 Neut # (Auto) 54978 H Lymph # (Auto) 1100 [place] # (Auto) 1300 H Eos # (Auto) 0 Baso # (Auto) 100 VBG pH 6.96 L* VBG pCO2 < 18.0 L VBG pO2 63 H VBG HCO3 4 L VBG Total CO2 < 5 L VBG O2 Saturation 77 H VBG Base Excess -28.0 L FiO2 21 Sodium 116 L* Potassium 6.2 H Chloride 82 L Carbon Dioxide < 5 L* BUN 58 H Creatinine 2.95 H Estimated GFR 18 L BUN/Creatinine Ratio 19.7 Glucose 880 H* Lactate 2.4 H Calcium 7.6 L Phosphorus 9.1 H* Magnesium 2.0 Total Bilirubin 0.6 AST 17 ALT 14 Alkaline Phosphatase 115 Total Creatine Kinase 74 Troponin I 0.016 Total Protein 6.1 L Albumin 3.9 Globulin 2.2 Albumin/Globulin Ratio 1.8 Lipase 1101 H Procalcitonin 1.55 H Urine Color Yellow Urine Appearance Clear Urine pH 5.0 Ur Specific [place] 1.025 Urine Protein 2+ H Urine Glucose (UA) 3+ H Urine Ketones 2+ H Urine Occult Blood 2+ H Urine Nitrate Negative Urine Bilirubin 1+ H Ur Bilirubin Confirm Negative Urine Urobilinogen 0.2 Ur Leukocyte Esterase Negative Urine RBC None seen Urine WBC None seen Ur Squamous Epith Cells 0-1 /hpf Urine Bacteria None seen Ur Culture Indicated? Cult not indicated Vol Urine Centrifuged 10ml (spun) Ur Random Sodium 25 L Urine Creatinine 35.5 U Opiates 300ng/mL cut Negative Ur Oxycodone Screen Negative Urine Methadone Screen Negative Ur Barbiturates Screen Negative U Tricyclic Antidepress Negative Ur Phencyclidine Scrn Negative Ur Amphetamines Screen Negative U Methamphetamines Scrn Negative Ur MDMA Scrn (Ecstasy) Negative U Benzodiazepines Scrn Negative Urine Cocaine Screen Negative U Marijuana (THC) Screen Positive H Urine Specific [place] Ketones 16.17 H Ur Creatinine 11/18/23 11/18/23 11/18/23 06:45 08:00 08:33 WBC RBC Hgb Hct MCV MCH MCHC RDW Plt Count Neut % (Auto) Lymph % (Auto) [place] % (Auto) Eos % (Auto) Baso % (Auto) Neut # (Auto) Lymph # (Auto) [place] # (Auto) Eos # (Auto) Baso # (Auto) VBG pH VBG pCO2 VBG pO2 VBG HCO3 VBG Total CO2 VBG O2 Saturation VBG Base Excess FiO2 Sodium 120 L Potassium 5.4 H Chloride 89 L Carbon Dioxide < 5 L* BUN 56 H Creatinine 2.56 H Estimated GFR 22 L BUN/Creatinine Ratio 21.9 Glucose 749 H* Lactate 1.2 Calcium 8.1 L Phosphorus 7.2 H D Magnesium Total Bilirubin 0.5 AST 20 ALT 14 Alkaline Phosphatase 112 Total Creatine Kinase Troponin I Total Protein 6.1 L Albumin 3.7 Globulin 2.4 Albumin/Globulin Ratio 1.5 Lipase Procalcitonin Urine Color Urine Appearance Urine pH Normal Ur Specific [place] Urine Protein Urine Glucose (UA) Urine Ketones Urine Occult Blood Urine Nitrate Urine Bilirubin Ur Bilirubin Confirm Urine Urobilinogen Ur Leukocyte Esterase Urine RBC Urine WBC Ur Squamous Epith Cells Urine Bacteria Ur Culture Indicated? Vol Urine Centrifuged Ur Random Sodium Urine Creatinine U Opiates 300ng/mL cut Ur Oxycodone Screen Urine Methadone Screen Ur Barbiturates Screen U Tricyclic Antidepress Ur Phencyclidine Scrn Ur Amphetamines Screen U Methamphetamines Scrn Ur MDMA Scrn (Ecstasy) U Benzodiazepines Scrn Urine Cocaine Screen U Marijuana (THC) Screen Urine Specific [place] Normal Ketones Ur Creatinine Normal 11/18/23 11/18/23 11/18/23 09:20 10:56 13:35 WBC RBC Hgb Hct MCV MCH MCHC RDW Plt Count Neut % (Auto) Lymph % (Auto) [place] % (Auto) Eos % (Auto) Baso % (Auto) Neut # (Auto) Lymph # (Auto) [place] # (Auto) Eos # (Auto) Baso # (Auto) VBG pH 7.22 L VBG pCO2 18.9 L VBG pO2 61 H VBG HCO3 8 L VBG Total CO2 8 L VBG O2 Saturation 87 H VBG Base Excess -20.0 L FiO2 21 Sodium 123 L 129 L Potassium 5.0 4.4 Chloride 92 L 102 Carbon Dioxide < 5 L* 13 L BUN 56 H 51 H Creatinine 2.21 H 1.27 H Estimated GFR 26 L 50 L BUN/Creatinine Ratio 25.3 H 40.2 H Glucose 662 H* 338 H D Lactate Calcium 8.5 8.7 Phosphorus Magnesium Total Bilirubin 0.6 AST 21 ALT 14 Alkaline Phosphatase 108 Total Creatine Kinase Troponin I Total Protein 6.6 Albumin 4.0 Globulin 2.6 Albumin/Globulin Ratio 1.5 Lipase Procalcitonin Urine Color Urine Appearance Urine pH Ur Specific [place] Urine Protein Urine Glucose (UA) Urine Ketones Urine Occult Blood Urine Nitrate Urine Bilirubin Ur Bilirubin Confirm Urine Urobilinogen Ur Leukocyte Esterase Urine RBC Urine WBC Ur Squamous Epith Cells Urine Bacteria Ur Culture Indicated? Vol Urine Centrifuged Ur Random Sodium Urine Creatinine U Opiates 300ng/mL cut Ur Oxycodone Screen Urine Methadone Screen Ur Barbiturates Screen U Tricyclic Antidepress Ur Phencyclidine Scrn Ur Amphetamines Screen U Methamphetamines Scrn Ur MDMA Scrn (Ecstasy) U Benzodiazepines Scrn Urine Cocaine Screen U Marijuana (THC) Screen Urine Specific [place] Ketones Ur Creatinine Assessment & Plan Assessment & Plan narrative: DKA JEFFERY hyperglycemia continue dka protocol trend bmp IVF k rpalcement when < 5, add d5w when bbg < 200 GI ppx dvt ppx monitor UO total CCT 35 min
[2023-11-18 18:22] LABS: MRSA (Nasal) PCR Not Detected (Not Detect)
[2023-11-18 18:24] LABS: BUN Creatinine Ratio 47.9 (6-22); Blood Urea Nitrogen 45 mg/dL (7-17); Calcium 8.5 mg/dL (8.4-10.2); Carbon Dioxide 20 mmol/L (22-32); Chloride 105 mmol/L (98-107); Estimated Glomerular Filt Rate > 60 mL/min (>60); Glucose 209 mg/dL (70-100); HEMOLYSIS < 15 (0-50); Potassium 4.7 mmol/L (3.4-5.1); Sodium 129 mmol/L (137-145)
[2023-11-18] MEDS: LACTATED RINGERS 1,000 ML 100 ML IV (20:22)
--- NOTE | 2023-11-18 20:39 | PM.ICURNDS ---
- :: This patient was seen via real time interactive two-way audiovisual telecommunication. pts Ag closed, she has a poor apetite for now and would like to resume pump. Will keep her on insulin gtt and IVf for now , plan for swithcing to home pump tomorrow
[2023-11-18] MEDS: DEXTROSE 10 % IN WATER 1,000 ML 45 ML IV (21:48)
[2023-11-18 22:19] LABS: BUN Creatinine Ratio 51.9 (6-22); Blood Urea Nitrogen 41 mg/dL (7-17); Calcium 8.8 mg/dL (8.4-10.2); Carbon Dioxide 21 mmol/L (22-32); Chloride 108 mmol/L (98-107); Estimated Glomerular Filt Rate > 60 mL/min (>60); Glucose 142 mg/dL (70-100); HEMOLYSIS < 15 (0-50); Potassium 4.8 mmol/L (3.4-5.1); Sodium 130 mmol/L (137-145)
[2023-11-19] VITALS (37 sets, daily range): BP systolic 111–135; BP diastolic 61–83; PULSE 52–85; RESP 10–39; TEMP 36.6–37.7; O2SAT 97–100
[2023-11-19] MEDS: POTASSIUM CHLORIDE IN WATER 10 MEQ/100 ML PIGGYBACK 100 MEQ IV ×5 (00:30→07:50)
[2023-11-19 02:17] LABS: BUN Creatinine Ratio 52.9 (6-22); Blood Urea Nitrogen 36 mg/dL (7-17); Calcium 8.4 mg/dL (8.4-10.2); Carbon Dioxide 20 mmol/L (22-32); Chloride 107 mmol/L (98-107); Estimated Glomerular Filt Rate > 60 mL/min (>60); Glucose 173 mg/dL (70-100); HEMOLYSIS < 15 (0-50); Potassium 4.7 mmol/L (3.4-5.1); Sodium 130 mmol/L (137-145)
[2023-11-19 06:00] LABS: Add Manual Diff / Slide Review NO; Basophils Absolute Auto 100 /uL (0-100); Basophils Percent Auto 0.7 % (0-2); Eosinophils Absolute Auto 0 /uL (0-450); Eosinophils Percent Auto 0.1 % (2-4); Hematocrit 36.4 % (36-46); Hemoglobin 12.6 g/dL (12.0-16.0); Lymphocytes Absolute Auto 900 /uL (1100-4500); Lymphocytes Percent Auto 9.7 % (25-40); Mean Corpuscular HGB Conc 34.7 % (30-36); Mean Corpuscular Hemoglobin 30.5 PG (26-34); Mean Corpuscular Volume 87.9 fL (80-100); Monocytes Absolute Auto 500 /uL (0-900); Monocytes Percent Auto 4.9 % (3-14); Neutrophils Absolute Auto 8300 /uL (1500-7000); Neutrophils Percent Auto 84.6 % (50-75); Platelet Count 128 X10^3/uL (150-400); Red Blood Cell Count 4.14 X10^6/uL (4.0-5.2); Red Cell Distribution Width 14.1 % (11.6-14.8); White Blood Cell Count 9.8 X10^3/uL (4.5-11.0)
[2023-11-19 06:11] LABS: Alanine Aminotransferase 14 IU/L (<35); Albumin Globulin Ratio 1.2 (1.0-2.8); Alkaline Phosphatase 84 U/L (38-126); Aspartate Aminotransferase 41 IU/L (14-36); Bilirubin Total 0.4 mg/dL (0.2-1.3); Blood Urea Nitrogen 31 mg/dL (7-17); Calcium 8.5 mg/dL (8.4-10.2); Carbon Dioxide 21 mmol/L (22-32); Chloride 107 mmol/L (98-107); Estimated Glomerular Filt Rate > 60 mL/min (>60); Globulin 2.5 g/dL (1.7-4.1); Glucose 191 mg/dL (70-100); HEMOLYSIS < 15 (0-50); Lipase 590 U/L (23-300); Magnesium 1.9 mg/dL (1.6-2.3); Potassium 4.8 mmol/L (3.4-5.1); Sodium 131 mmol/L (137-145); Total Protein 5.5 g/dL (6.3-8.2)
[2023-11-19] MEDS: LACTATED RINGERS 1,000 ML 100 ML IV (06:15)
[2023-11-19] MEDS: DEXTROSE 5%-0.45% NS 1,000 ML 67.5 ML IV (06:16)
--- NOTE | 2023-11-19 06:44 | PC.NURSE ---
[employer] [employer] Note-Patient remains on insulin gtt throughout the night, titrated per DKA protocol, BG 130-191, see flow sheet. D5 1/2 or D10W infusing per protocol along with LR @ 100ml/hr as ordered. K+ riders given per DKA protocol also. Patient has been drowsy and sleeping most of shift, rouses for care, is oriented. Denies nausea, but does not have an appetite. VSS.
[2023-11-19] MEDS: INSULIN GLARGINE 100 UNIT/ML 3ML PEN 20 UNIT SUBCUT (09:33)
[2023-11-19] MEDS: ENOXAPARIN 40 MG/0.4 ML SYRINGE SUBCUT (09:34)
--- NOTE | 2023-11-19 11:45 | CM.DANOTE ---
DCP Assessment Note Pt is a 53yo F here following DKA emergency. PCP Dr. Elly Nieves and self pay PROJECT COORDINATOR RN reviewed EMR. Per hospitalist in morning rounds, potential dc later this afternoon pending improvement. Per RN, pt has been very sleepy throughout morning so far. PROJECT COORDINATOR RN entered room and introduced self and role. Pt sleepy but alert enough for DCP conversation. Lives in [place] with Partner Brandan. Pt works and is normally indep at baseline,. Pt has had recent stressors in her life that she's struggling to cope with., her son in the last year and her dog was recently attacked by another dog and lost both eyes last week. Pt reports she's been struggling to navigate all of that as well as general stressors of life and started to not manage her diabetes as well as she should. pt has been struggling to get access to the censors for her pump but normally, would prink her finger to manage her sugars that way. instead, she's been neglectful of her physical health due to checking out from grief. Pt reports hx of grief support group that was helpful- will start up again in May. PROJECT COORDINATOR RN provided list of therapists accepting new pt's in the area that take her insurance to continue to help pt with her grief until then. Pt appreciative of the information. Deny other CM needs. Plan; anticipate home today vs tomorrow with partner when medically stable. Deny other CM needs. CM team will follow as needed. NENA Araya Discharge Planning/Care Management CM Discharge Assessment Start: 11/19/23 11:44 Freq: Status: Active Protocol: Document 11/19/23 11:44 (Rec: 11/19/23 11:45 [id number]) Discharge Planning Assessment Assigned Sleeve Separator NENA Gill DPOA/Assigned Designee Name vikas Gipson Contact Information [phone] Advance Directives? No History Provided By Patient Prior Living Arrangements House Household Members family Type of transporation used prior to Drives own vehicle admit Independent with ADL's Yes Is patient alert and oriented? Yes Discharge Plan Home Transportation Arrangement partner Referrals Initiated None needed Whiteboard Updated in Patient Room with Yes name and ext. # of Sleeve Separator Review Status In Process Next Review Type Continued Stay Review
[2023-11-19] MEDS: INSULIN LISPRO 100 UNIT/ML 3ML VIAL SUBCUT ×3 (13:04→17:43)
--- NOTE | 2023-11-19 15:13 | P.PN_ITS ---
Subjective Subjective Interval history: Feels better today, still quite flat and lethargic. Did not eat much of breakfast or lunch. Was able to transition to lantus this morning, was unable to get her pump supplies. Exam Vital Signs (past 8 hours): - 11/19/23 07:30 11/19/23 08:00 11/19/23 08:00 Temperature Pulse Rate 56 L 52 L Respiratory Rate 20 22 Blood Pressure Pulse Oximetry Oxygen Delivery Method Room Air Oxygen Flow Rate 11/19/23 08:30 11/19/23 09:00 11/19/23 09:30 Temperature Pulse Rate 59 L 68 63 Respiratory Rate 24 23 25 H Blood Pressure Pulse Oximetry Oxygen Delivery Method Oxygen Flow Rate 11/19/23 10:00 11/19/23 10:30 11/19/23 11:00 Temperature Pulse Rate 75 61 75 Respiratory Rate 10 L 20 27 H Blood Pressure Pulse Oximetry Oxygen Delivery Method Oxygen Flow Rate 11/19/23 12:00 Temperature 98.1 F Pulse Rate 62 Respiratory Rate 23 Blood Pressure 121/73 Pulse Oximetry 98 Oxygen Delivery Method Oxygen Flow Rate 0 Oxygen Delivery Method Room Air Oxygen Flow Rate 0 Narrative Exam Narrative: pt ill appearing, lethargic, soft spoken CV RRR no m/r/g Pulm CTA B/l with shallow breaths Abd; S NT ND Ext; No edema Objective Labs 11/19/23 05:54 11/19/23 05:54 Labs: Laboratory Results - last 24 hr 11/18/23 11/18/23 11/18/23 08:00 16:21 17:50 WBC RBC Hgb Hct MCV MCH MCHC RDW Plt Count Neut % (Auto) Lymph % (Auto) [place] % (Auto) Eos % (Auto) Baso % (Auto) Neut # (Auto) Lymph # (Auto) [place] # (Auto) Eos # (Auto) Baso # (Auto) Sodium 120 L 129 L Potassium 5.4 H 4.7 Chloride 89 L 105 Carbon Dioxide < 5 L* 20 L BUN 56 H 45 H Creatinine 2.56 H 0.94 Estimated GFR 22 L > 60 BUN/Creatinine Ratio 21.9 47.9 H Glucose 749 H* 209 H D Calcium 8.1 L 8.5 Magnesium Total Bilirubin 0.5 AST 20 ALT 14 Alkaline Phosphatase 112 Total Protein 6.1 L Albumin 3.7 Globulin 2.4 Albumin/Globulin Ratio 1.5 Lipase Nasal Screen MRSA (PCR) Not detected 11/18/23 11/19/23 11/19/23 21:55 01:55 05:54 WBC 9.8 RBC 4.14 Hgb 12.6 Hct 36.4 MCV 87.9 D MCH 30.5 MCHC 34.7 D RDW 14.1 Plt Count 128 L Neut % (Auto) 84.6 H Lymph % (Auto) 9.7 L [place] % (Auto) 4.9 Eos % (Auto) 0.1 L Baso % (Auto) 0.7 Neut # (Auto) 8300 H Lymph # (Auto) 900 L [place] # (Auto) 500 Eos # (Auto) 0 Baso # (Auto) 100 Sodium 130 L 130 L 131 L Potassium 4.8 4.7 4.8 Chloride 108 H 107 107 Carbon Dioxide 21 L 20 L 21 L BUN 41 H 36 H 31 H Creatinine 0.79 0.68 0.62 Estimated GFR > 60 > 60 > 60 BUN/Creatinine Ratio 51.9 H 52.9 H 50.0 H Glucose 142 H 173 H 191 H Calcium 8.8 8.4 8.5 Magnesium 1.9 Total Bilirubin 0.4 AST 41 H ALT 14 Alkaline Phosphatase 84 Total Protein 5.5 L Albumin 3.0 L Globulin 2.5 Albumin/Globulin Ratio 1.2 Lipase 590 H Nasal Screen MRSA (PCR) [facility] Medical History (Updated 11/18/23 @ 06:49 by Nettie Rainey DO) Restless leg Septal myocardial infarction Incomplete RBBB Multiple sclerosis Diabetes, gestational Hot flashes Primary osteoarthritis of left knee Primary osteoarthritis of right knee Low back pain with left-sided sciatica Easy bruising Perimenopausal Lumbar disc herniation with radiculopathy Social History household members: family Smoking Status: Current every day smoker Assessment & Plan Assessment & Plan narrative: 1. DKA with coma / acute metabolic encephalopathy - continued on insulin infusion until glucose improved, symptoms improved, GAP closed and acidosis resolved. Gave 20 U lantus this AM, will also add 3 U AC and sliding scale insulin. Ideally will bring in pump supplies to restart prior to discharge but not necessary. - given a dose of cefepime and vanco in the ER. Elevated procalcitonin, but no clinical evidence currently of infection. CXR is negative, no obvious signs or symptoms on exam or history of infection, and UA negative on presentation as well. Will hold on antibiotics at this time. If febrile will resume antibiotics, repeat CXR for evidence of pneumonia. - glucose ACHS and continue to adjust insulin needs. - She is still quite lethargic and not eating well, see if improved tomorrow for discharge home. 2. JEFFERY with hyperkalemia and hyperphosphatemia and mild hyponatremia. Resolved - Stopped IV fluids - Cr now to normal along with all electrolytes with DKA management. 3. Elevated lipase - suspect due to lack of insulin, no abdominal pain currently or signs of pancreatitis on imaging - repeat lipase improved. 4. Multiple sclerosis - can continue home medications, patient is behind on her interferon, will resume once back on insulin pump therapy if no additional signs of infection moving forward. 5. HTN - hold home medications in JEFFERY and dehydration for now, resume if hypertensive diet: okay for CLD I have utilized all available immediate resources to obtain, update, or review the patient's current medications. Code: Full, surrogate is patient's spouse DVT: lovenox daily I spent 35 minutes providing critical care management this patient. This excludes time spent in performing separately billed procedures. Dispo: patient okay for floor care. Possible discharge home tomorrow if feeling improved after severe DKA. Quality VTE Deep Vein Thrombosis/Pulmonary Embolism Present on Admission: No
--- NOTE | 2023-11-19 17:37 | DIET.CONS ---
Dietary Consultation Note Admission Date: 11/18/2023 09:19 Assessment: 53 y F admitted for DKA. Nutrition consulted for low BMI. Pt asleep x2 attempted visits and did not awaken to name called, chart reviewed. Pt with decreased appetite and low PO intakes, with nausea and vomiting over weekend. No recent weight hx. Per APPRENTICE CARPENTER note, pt has been facing multiple life stressors and grief that has complicated diabetic management. Has supplies to check BG via prick, but struggling to get access to censors for pump. Ht: 160.02 cm Wt: 45 kg BMI: 17.5 (underweight) UBW: 45.076 kg per chart on 05/06/23 Last BM: 11/16/23 (11/18/23 12:00) MNA: 11 David Score: 18 Diet: 11/19/23 Breakfast Carbohydrate Consistent Diet Diet Modifications: Carbohydrate level: Large (4 CHO) Reflex DM orders: No Food Texture: Level 7 - Regular Liquid Consistency: Level 0 - Thin Labs: RBC 4.14 X10^6/uL (4.0-5.2) 11/19/23 05:54 Hgb 12.6 g/dL (12.0-16.0) 11/19/23 05:54 Hct 36.4 % (36-46) 11/19/23 05:54 Creatinine 0.62 mg/dL (0.52-1.04) 11/19/23 05:54 Lactate 1.2 mmol/L (0.7-2.1) 11/18/23 08:00 Nutrition Diagnosis: Inadequate oral intake r/t decrease appetite as evidenced by low PO intakes, N/V over weekend with elevated BG Interventions: 1. Added ONS BID Monitoring/Evaluations: BG, PO intakes, will assess for opportunity to f/u with pt Electronically Signed by: Leticia Rivero 11/19/23 17:37 Clinical Dietitian [address] [id number]
[2023-11-20] VITALS (14 sets, daily range): BP systolic 118–128; BP diastolic 66–70; PULSE 53–77; RESP 0–31; TEMP 36.8–37.3; O2SAT 96–99
[2023-11-20 05:13] LABS: Add Manual Diff / Slide Review NO; Basophils Absolute Auto 0 /uL (0-100); Basophils Percent Auto 0.3 % (0-2); Eosinophils Absolute Auto 0 /uL (0-450); Eosinophils Percent Auto 0.1 % (2-4); Hematocrit 35.8 % (36-46); Hemoglobin 12.6 g/dL (12.0-16.0); Lymphocytes Absolute Auto 1200 /uL (1100-4500); Lymphocytes Percent Auto 22.5 % (25-40); Mean Corpuscular HGB Conc 35.2 % (30-36); Mean Corpuscular Volume 88.1 fL (80-100); Monocytes Absolute Auto 300 /uL (0-900); Monocytes Percent Auto 5.5 % (3-14); Neutrophils Absolute Auto 3800 /uL (1500-7000); Neutrophils Percent Auto 71.6 % (50-75); Platelet Count 96 X10^3/uL (150-400); Red Blood Cell Count 4.07 X10^6/uL (4.0-5.2); Red Cell Distribution Width 14.4 % (11.6-14.8); White Blood Cell Count 5.3 X10^3/uL (4.5-11.0)
[2023-11-20 05:20] LABS: Alanine Aminotransferase 18 IU/L (<35); Albumin 3.1 g/dL (3.5-5.0); Albumin Globulin Ratio 1.3 (1.0-2.8); Alkaline Phosphatase 93 U/L (38-126); Aspartate Aminotransferase 52 IU/L (14-36); BUN Creatinine Ratio 39.2 (6-22); Bilirubin Total 0.9 mg/dL (0.2-1.3); Blood Urea Nitrogen 20 mg/dL (7-17); Calcium 8.7 mg/dL (8.4-10.2); Carbon Dioxide 28 mmol/L (22-32); Chloride 101 mmol/L (98-107); Estimated Glomerular Filt Rate > 60 mL/min (>60); Globulin 2.4 g/dL (1.7-4.1); Glucose 314 mg/dL (70-100); HEMOLYSIS < 15 (0-50); Magnesium 2.1 mg/dL (1.6-2.3); Potassium 4.3 mmol/L (3.4-5.1); Sodium 132 mmol/L (137-145); Total Protein 5.5 g/dL (6.3-8.2)
[2023-11-20] MEDS: INSULIN GLARGINE 100 UNIT/ML 3ML PEN 20 UNIT SUBCUT (08:24)
[2023-11-20] MEDS: INSULIN LISPRO 100 UNIT/ML 3ML VIAL SUBCUT ×4 (08:25→11:42)
[2023-11-20] MEDS: ENOXAPARIN 40 MG/0.4 ML SYRINGE SUBCUT (08:26)
--- NOTE | 2023-11-20 10:35 | P.DS_ITS ---
History of Present Illness History of Present Illness Date Patient Seen: 11/20/23 Time Patient Seen: 10:35 Chief complaint: hyperglycemia Narrative: This is a 53 year old female with PMH of MS, DM2 with insulin pump, CAD, HTN, HLD who presented nausea and vomiting and weakness. States her pump stopped working 3 days prior to admission and had not replaced her pump. Denies fever or chills, may have slight urinary frequency but not recently. She fell asleep quickly during the interview as the patient was very acidotic on presentation from DKA. In the ER, she had elevated anion gap, ketones, and marked acidosis. She was started on insulin infusion and admitted to the ICU for DKA. Discharge Providers Provider Date of admission: 11/18/23 09:19 Discharge Date: 11/20/23 Primary care physician: Ari Sanabria DO Consults: 11/18/23 09:50 Consult to Tele-senior software quality analyst Routine Comment: Consulting Provider: Edmund [employer]intens[employer] Reason for consultation: Network Support Manager services 11/18/23 12:10 Consult to Dietitian, Adult Routine Comment: Reason For Exam: Low BMI Discharge provider: Raheel Klein DO Summary Hospital Course Discharge Diagnosis: 1. DKA with coma / acute metabolic encephalopathy 2. JEFFERY with hyperkalemia and hyperphosphatemia and mild hyponatremia. Resolved 3. Elevated lipase 4. Multiple sclerosis 5. HTN Hospital Course: This is a 53 year old female with PMH of IDDM who was admitted to the ICU with DKA with coma / acute metabolic encephalopathy, and JEFFERY due to dehydration. She had marked acidosis, anion gap, and elevated glucose. She had an elevated lipase likely due to her lack of insulin the previous few days. She was started on insulin infusion, provided ample rehydration, with ultimate resolution of her DKA. She was given antibiotics in the ER, but these were not continued as infectious workup was unremarkable. She could not obtain needed supplies for her insulin pump, so she was placed back on 20 U of lantus daily. The day after coming off the insulin infusion, she was well appearing with no ongoing symptoms and was tolerating a diet. She was given a prescription for Lantus pens in case of pump failure in the future. She was also sent a prescription for humalog vials. Time Spent with Patient Time spent: Greater than 30 minutes Exam Vital Signs (past 8 hours): - 11/20/23 03:00 11/20/23 03:30 11/20/23 04:00 Temperature Pulse Rate 76 67 58 L Respiratory Rate 26 H 31 H 0 L Blood Pressure Pulse Oximetry Oxygen Delivery Method Oxygen Flow Rate 11/20/23 04:30 11/20/23 04:58 11/20/23 04:58 Temperature 99.1 F Pulse Rate 67 68 Respiratory Rate 23 13 Blood Pressure 118/67 Pulse Oximetry 97 Oxygen Delivery Method Oxygen Flow Rate 0 11/20/23 05:00 11/20/23 08:00 11/20/23 08:00 Temperature 98.7 F Pulse Rate 66 71 Respiratory Rate 30 H 16 Blood Pressure 118/66 Pulse Oximetry 99 Oxygen Delivery Method Room Air Oxygen Flow Rate 0 Oxygen Delivery Method Room Air Oxygen Flow Rate 0 Narrative Exam Narrative: pt well appearing, more alert CV RRR no m/r/g Pulm CTA B/l with shallow breaths Abd; S NT ND Ext; No edema Objective Labs 11/20/23 04:45 11/20/23 04:45 Labs: Laboratory Results - last 24 hr 11/20/23 04:45 WBC 5.3 RBC 4.07 Hgb 12.6 Hct 35.8 L MCV 88.1 MCH 31.0 MCHC 35.2 RDW 14.4 Plt Count 96 L Neut % (Auto) 71.6 Lymph % (Auto) 22.5 L [place] % (Auto) 5.5 Eos % (Auto) 0.1 L Baso % (Auto) 0.3 Neut # (Auto) 3800 Lymph # (Auto) 1200 [place] # (Auto) 300 Eos # (Auto) 0 Baso # (Auto) 0 Sodium 132 L Potassium 4.3 Chloride 101 Carbon Dioxide 28 BUN 20 H Creatinine 0.51 L Estimated GFR > 60 BUN/Creatinine Ratio 39.2 H Glucose 314 H D Calcium 8.7 Magnesium 2.1 Total Bilirubin 0.9 AST 52 H ALT 18 Alkaline Phosphatase 93 Total Protein 5.5 L Albumin 3.1 L Globulin 2.4 Albumin/Globulin Ratio 1.3 PFSH Medical History (Updated 11/18/23 @ 06:49 by Nettie Rainey DO) Restless leg Septal myocardial infarction Incomplete RBBB Multiple sclerosis Diabetes, gestational Hot flashes Primary osteoarthritis of left knee Primary osteoarthritis of right knee Low back pain with left-sided sciatica Easy bruising Perimenopausal Lumbar disc herniation with radiculopathy Social History household members: family Smoking Status: Current every day smoker Discharge Plan Discharge Plan Patient Disposition: Home Provider Discharge Comment: You were admitted to the hospital with DKA, improved with treatments here in the hospital. Sent new prescriptions for insulin and backup lantus pens. Please follow up with PCP / endocrinology to review admission for DKA. Discharge orders & Medications Prescriptions: New insulin glargine 100 unit/mL (3 mL) insulin pen 20 unit SUBCUT QAM Qty: 15 0RF insulin aspart U-100 100 unit/mL solution 50 unit SUBCUT DAILY 28 Days Qty: 30 0RF Rx Instructions: For use with insulin pump therapy Continued venlafaxine 150 mg Capsule,Extended Release 24hr 150 mg PO DAILY cyanocobalamin (vitamin B-12) 1,000 mcg Tablet 1,000 mcg PO DAILY ferrous sulfate 325 mg (65 mg iron) Tablet 325 mg PO BID ibuprofen 200 mg Tablet 800 mg PO Q6H PRN (Reason: Pain) cholecalciferol (vitamin D3) 5,000 unit Tablet 5,000 unit PO DAILY oxycodone-acetaminophen 5-325 mg Tablet 1 tab PO Q4-6H PRN (Reason: Pain, Moderate) oxycodone 5 mg capsule 5 mg PO Q4-6H PRN (Reason: pain) Qty: 30 0RF hydroxyzine pamoate [Vistaril] 25 mg capsule 25 mg PO Q6-8H PRN (Reason: spasms) Qty: 20 0RF Rx Instructions: 1 tablet PO every 6 hours for muscle spasms bupropion HCl 75 mg tablet 75 mg PO DAILY lisinopril 5 mg tablet 2.5 mg PO DAILY insulin aspart U-100 100 unit/mL (3 mL) insulin pen See Protocol SUBCUT ACHS Protocol: TITRATE PER PROTOCOL Patient Comments: USE 20 UNITS PER DAY IN CASE OF PUMP FAILURE. INJECT SUBCUTANEOUS 1 UNIT FOR EVERY 15 GRAMS OF CARBOHYDRATE 15 MINUTES BEFORE EACH MEAL. Avonex 30 mcg/0.5 mL syringe kit 30 mcg IM WEEKLY rosuvastatin 10 mg tablet 10 mg PO DAILY cyclobenzaprine 10 mg Tablet 10 mg PO TID insulin glargine 100 unit/mL Cartridge 22 unit SUBCUT QPM chlorhexidine gluconate 0.12 % Mouthwash 15 ml BUCCAL BID diclofenac sodium 1 % Gel 4 g TOPICAL QID Rx Instructions: apply to single knee, ankle, foot; for foot includes sole/toes/top of foot Follow up/Referrals: Ari aSnabria DO [Primary Care Provider] - Diet/Activity/Treatments Diet: Diet as Tolerated and Carb-consistent/Diabetic Activity: As tolerated no restrictions. Visit Report/Discharge Packet Instructions: DI for Diabetic Ketoacidosis Stand Alone Forms: Patient Portal/API, Stroke Signs & Symptoms Discharge Data Primary Care Provider: Ari Sanabria Quality VTE Deep Vein Thrombosis/Pulmonary Embolism Present on Admission: No
--- NOTE | 2023-11-20 11:16 | CM.DPNOTE ---
DCP Note METEOROLOGICAL EQUIPMENT REPAIRER reviewed EMR. Per provider in morning rounds, cleared for dc home today. METEOROLOGICAL EQUIPMENT REPAIRER met with pt briefly in room. Eager to go home. Deny other CM needs at this time. Plan; home with partner today. No obvious CM needs. CM team will follow as needed. NENA Araya
== END 2023-11-20 12:50 | disposition home or self-care (01) | DRG 637 ==
LOC: ED 08:35 → AC 09:20 → ICU 09:31
PROVIDERS: Emergency Medicine; Admitting Provider Internal Medicine; Emergency Provider Emergency Medicine; PCP Family Medicine; Referring Provider Emergency Medicine; Visit Provider Internal Medicine
DX: E11.11 Type 2 diabetes mellitus with ketoacidosis with coma (principal); G93.41 Metabolic encephalopathy; N17.9 Acute kidney failure, unspecified; E87.5 Hyperkalemia; G35 Multiple sclerosis; E86.0 Dehydration; T85.898A Other specified complication of other internal prosthetic devices, implants and grafts, initial encounter; I10 Essential (primary) hypertension; E83.39 Other disorders of phosphorus metabolism; E78.5 Hyperlipidemia, unspecified; I25.10 Atherosclerotic heart disease of native coronary artery without angina pectoris; F17.210 Nicotine dependence, cigarettes, uncomplicated; Z96.41 Presence of insulin pump (external) (internal); Z79.4 Long term (current) use of insulin
CPT/HCPCS: 36415; 36592; 71045; 74176; 80048; 80053; 80305; 81001; 82009; 82550; 82570; 82805; 82962; 83605; 83690; 83735; 84100; 84145; 84300; 84484; 85025; 87040; 87797; 93005; 93010; 96361; 96365; 96368; 99285; 99291; J0612; J0692; J1650; J1815